=== PATIENT | female | born 1990 | race American Indian/Alaskan Native ===

== ENCOUNTER 2017-02-16 17:35 | Emergency (ER) | payer MEDICAID, OTHER | END 2017-02-16 18:31 | disposition left against medical advice (07) | LOC: DL.ED 17:35 | DX: Z53.21 Procedure and treatment not carried out due to patient leaving prior to being seen by health care provider (principal) ==

== ENCOUNTER 2017-02-27 15:07 | Inpatient (IN) | payer MEDICAID, SELFPAY ==
--- NOTE | 2017-02-27 16:20 | EDM.PDOC ---
ED HPI Skin/Rash - General Chief Complaint: Skin Complaint Stated Complaint: SKIN PROBLEM Time Seen by Provider: 02/27/17 16:10 Source: Reports: Patient History Limitations: Reports: No limitations - History of Present Illness INITIAL COMMENTS - FREE TEXT/NARRATIVE: This 26 yo female patient reports to the ED with swelling and drainage from the top of her head. The patient reports she hit her head on the bottom of the steps 3-4 days ago. The patient started to have pain at that time, but her pain got much worse over the past 24 hours. The patient reports a history of diabetes and previous MRSA infections. The patient reports that she attempted to get into the clinic today, but her provider was not available. 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, NSAIDS - Related Data Allergies Allergy/AdvReac Type Severity Reaction Status Date / Time No Known Allergies Allergy Verified 02/27/17 15:53 Home Meds: Ambulatory Orders Medication Instructions Recorded Confirmed Aspirin [Halfprin] 81 mg PO DAILY 12/06/13 02/27/17 Insulin Detemir [Levemir] 20 unit SUBCUT DAILY 12/06/13 02/27/17 glyBURIDE [Micronase] 5 mg PO BID 12/06/13 02/27/17 Gabapentin 300 mg PO TID 06/30/16 02/27/17 Insulin Aspart [NovoLOG] 10 unit SUBCUT TIDAC pen 12/26/16 02/27/17 Magnesium Oxide 500 mg PO BIDMEALS tablet 12/26/16 02/27/17 Phosphorus #1 [Neutra-Phos] 500 mg PO TID tablet 12/26/16 02/27/17 Lisinopril 1 tab PO DAILY 02/27/17 02/27/17 Past Medical History HEENT History: Reports: None Cardiovascular History: Reports: Hypertension Respiratory History: Reports: None Gastrointestinal History: Reports: None Genitourinary History: Reports: Pyelonephritis 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 Musculoskeletal History: Reports: None Neurological History: Reports: None Psychiatric History: Reports: Addiction Endocrine/Metabolic History: Reports: Diabetes, type II Hematologic History: Reports: None Immunologic History: Reports: None Oncologic (Cancer) History: Reports: None Dermatologic History: Reports: None - Infectious Disease History Infectious Disease History: Reports: C-difficile - Past Surgical History Other Musculoskeletal Surgeries/Procedures:: surgery to repair fractured wrist Social & Family History - Family History Family Medical History: Noncontributory - Tobacco Use Smoking Status *Q: Current Every Day Smoker Years of Tobacco use: 5 Packs/Tins Daily: 3 Used Tobacco, but Quit: No Second Hand Smoke Exposure: Yes - Caffeine Use Caffeine Use: Reports: Coffee, Soda - Recreational Drug Use Recreational Drug Use: No Drug Use in Last 12 Months: Yes Recreational Drug Type: Reports: Amphetamines (Speed), Methamphetamine, Other ( see below) Other Recreational Drug Type: used 5 days ago Recreational Drug Use Frequency: Not Used In Over 5 Months Recreational Drug Last Use: 5 days ago ED ROS GENERAL - Review of Systems Review Of Systems: ROS reveals no pertinent complaints other than HPI. ED EXAM, SKIN/RASH Exam: See Below Exam Limited By: No limitations General Appearance: alert, WD/WN, moderate distress Eye Exam: bilateral eye: EOMI, normal inspection, PERRL Ears: normal external exam, normal canal, hearing grossly normal, normal TMs Nose: normal inspection, normal mucosa, no blood Throat/Mouth: Normal inspection, Normal lips, Normal teeth, Normal gums, Normal oropharynx, Normal voice, No airway compromise Head: atraumatic, other (posterior scalp pain with drainage) Neck: normal inspection, supple, non-tender, full range of motion Respiratory/Chest: no respiratory distress, lungs clear, normal breath sounds, no accessory muscle use, chest non-tender Cardiovascular: normal peripheral pulses, regular rate, rhythm, no edema, no gallop, no JVD, no murmur, no rub GI/Abdominal: normal bowel sounds, soft, non tender, no organomegaly, no distention, no abnormal bruit, no mass (Female) Exam: Deferred Rectal (Female) Exam: Deferred Back Exam: normal inspection, full range of motion, NT Extremities: normal inspection, normal range of motion, non-tender, no pedal edema, normal capillary refill Neurological: alert, oriented, CN II-XII intact, normal cognition, normal gait, normal reflexes, no motor/sensory deficits Psychiatric: normal affect, normal mood Skin: Erythema (posterior scalp with drainage) Location, Skin: head Characteristics: erythematous (with drainage) Associated features: warmth, tenderness, swelling, induration Lymphatic: no adenopathy Course - Vital Signs Last Recorded V/S: Last Vital Signs Temp 37.1 C 02/27/17 15:59 Pulse 123 H 02/27/17 15:59 Resp 20 02/27/17 15:59 BP 117/92 H 02/27/17 15:59 Pulse Ox 100 02/27/17 15:59 - Orders/Labs/Meds Orders: Active Orders 24 hr Category Date Time Status CULTURE BLOOD [BC] Stat Lab 02/27/17 16:15 Received CULTURE BLOOD [BC] Stat Lab 02/27/17 16:20 Received CULTURE WOUND [RM] Stat Lab 02/27/17 16:10 Received UA W/MICROSCOPIC [URIN] Stat Lab 02/27/17 16:50 Ordered Sodium Chloride 0.9% [Normal Saline] 1,000 ml Med 02/27/17 17:02 Ordered IV .BOLUS Vancomycin 1.25 gm Med 02/27/17 17:07 Ordered Sodium Chloride 0.9% [Normal Saline] 250 ml IV ONETIME Medication Orders Sodium Chloride (Normal Saline) 1,000 mls @ 999 mls/hr IV .BOLUS ONE Stop: 02/27/17 18:02 Vancomycin HCl 1.25 gm/ Sodium (Chloride) 250 mls @ 167 mls/hr IV ONETIME ONE Stop: 02/27/17 18:36 Labs: Laboratory Tests 02/27/17 02/27/17 02/27/17 Range/Units 16:15 16:15 16:15 WBC 17.1 H (5.0-10.0) 10^3/uL RBC 4.93 (4.2-5.4) 10^6/uL Hgb 11.8 L (12.0-16.0) g/dL Hct 36.3 L (37.0-47.0) % MCV 73.6 L (80-100) fL MCH 23.9 L (27.0-34.0) pg MCHC 32.5 L (33.0-35.0) g/dL Plt Count 522 H (150-450) 10^3/uL Neut % (Auto) 74.9 (42.2-75.2) % Lymph % (Auto) 16.9 L (20.5-50.1) % [place] % (Auto) 6.9 (2-8) % Eos % (Auto) 1.1 (1.0-3.0) % Baso % (Auto) 0.2 (0.0-1.0) % Sodium 127 L (135-145) mmol/L Potassium 4.0 (3.6-5.0) mmol/L Chloride 93 L (101-111) mmol/L Carbon Dioxide 25.0 (21.0-31.0) mmol/L Anion Gap 13.0 BUN 8 (7-18) mg/dL Creatinine 0.7 (0.6-1.3) mg/dL Est Cr Clr Drug Dosing 76.25 mL/min Estimated GFR (MDRD) > 60 BUN/Creatinine Ratio 11.42 Glucose 467 H* (74-105) mg/dL Lactic Acid 2.1 (0.5-2.2) mmol/L Calcium 8.5 (8.4-10.2) mg/dl Total Bilirubin 0.5 (0.2-1.0) mg/dL AST 28 (10-42) IU/L ALT 48 (10-60) IU/L Alkaline Phosphatase 130 H (42-121) IU/L Total Protein 8.3 H (6.7-8.2) g/dl Albumin 3.4 (3.2-5.5) g/dl Globulin 4.9 Albumin/Globulin Ratio 0.69 Urine Opiates Screen (NEGATIVE) Ur Oxycodone Screen (NEGATIVE) Urine Methadone Screen (NEGATIVE) Ur Barbiturates Screen (NEGATIVE) U Tricyclic Antidepress (NEGATIVE) Ur Phencyclidine Scrn (NEGATIVE) Ur Amphetamine Screen (NEGATIVE) U Methamphetamines Scrn (NEGATIVE) Urine MDMA Screen (NEGATIVE) U Benzodiazepines Scrn (NEGATIVE) Urine Cocaine Screen (NEGATIVE) U Marijuana (THC) Screen (NEGATIVE) 02/27/17 Range/Units 16:50 WBC (5.0-10.0) 10^3/uL RBC (4.2-5.4) 10^6/uL Hgb (12.0-16.0) g/dL Hct (37.0-47.0) % MCV (80-100) fL MCH (27.0-34.0) pg MCHC (33.0-35.0) g/dL Plt Count (150-450) 10^3/uL Neut % (Auto) (42.2-75.2) % Lymph % (Auto) (20.5-50.1) % [place] % (Auto) (2-8) % Eos % (Auto) (1.0-3.0) % Baso % (Auto) (0.0-1.0) % Sodium (135-145) mmol/L Potassium (3.6-5.0) mmol/L Chloride (101-111) mmol/L Carbon Dioxide (21.0-31.0) mmol/L Anion Gap BUN (7-18) mg/dL Creatinine (0.6-1.3) mg/dL Est Cr Clr Drug Dosing mL/min Estimated GFR (MDRD) BUN/Creatinine Ratio Glucose (74-105) mg/dL Lactic Acid (0.5-2.2) mmol/L Calcium (8.4-10.2) mg/dl Total Bilirubin (0.2-1.0) mg/dL AST (10-42) IU/L ALT (10-60) IU/L Alkaline Phosphatase (42-121) IU/L Total Protein (6.7-8.2) g/dl Albumin (3.2-5.5) g/dl Globulin Albumin/Globulin Ratio Urine Opiates Screen Negative (NEGATIVE) Ur Oxycodone Screen Negative (NEGATIVE) Urine Methadone Screen Negative (NEGATIVE) Ur Barbiturates Screen Negative (NEGATIVE) U Tricyclic Antidepress Negative (NEGATIVE) Ur Phencyclidine Scrn Negative (NEGATIVE) Ur Amphetamine Screen Negative (NEGATIVE) U Methamphetamines Scrn Positive H (NEGATIVE) Urine MDMA Screen Negative (NEGATIVE) U Benzodiazepines Scrn Negative (NEGATIVE) Urine Cocaine Screen Negative (NEGATIVE) U Marijuana (THC) Screen Negative (NEGATIVE) Meds: Medications Generic Name Dose Route Start Last Admin Trade Name Freq PRN Reason Stop Dose Admin Sodium Chloride 1,000 mls @ 999 mls/hr 02/27/17 17:02 Normal Saline IV 02/27/17 18:02 .BOLUS ONE Vancomycin HCl 1.25 gm/ Sodium 250 mls @ 167 mls/hr 02/27/17 17:07 Chloride IV 02/27/17 18:36 ONETIME ONE Discontinued Medications Generic Name Dose Route Start Last Admin Trade Name Freq PRN Reason Stop Dose Admin Oxycodone/Acetaminophen 1 tab 02/27/17 17:06 Percocet 325-5 Mg PO 02/27/17 17:07 ONETIME ONE Departure - Departure Time of Disposition: 17:09 Disposition: Admitted As Inpatient 64 Condition: poor Clinical Impression: Abscess, Bacteremia Forms: ED Department Discharge Care Plan Goals: Discussed the examination, lab and history results with Dr. Felix. Dr. Felix accepted the patient for continued evaluation and management. - My Orders Last 24 Hours: My Active Orders 02/27/17 16:10 CULTURE WOUND [RM] Stat 02/27/17 16:15 CULTURE BLOOD [BC] Stat 02/27/17 16:20 CULTURE BLOOD [BC] Stat 02/27/17 16:50 UA W/MICROSCOPIC [URIN] Stat 02/27/17 17:02 Sodium Chloride 0.9% [Normal Saline] 1,000 ml IV .BOLUS 02/27/17 17:07 Vancomycin 1.25 gm Sodium Chloride 0.9% [Normal Saline] 250 ml IV ONETIME - Assessment/Plan Last 24 Hours: My Active Orders 02/27/17 16:10 CULTURE WOUND [RM] Stat 02/27/17 16:15 CULTURE BLOOD [BC] Stat 02/27/17 16:20 CULTURE BLOOD [BC] Stat 02/27/17 16:50 UA W/MICROSCOPIC [URIN] Stat 02/27/17 17:02 Sodium Chloride 0.9% [Normal Saline] 1,000 ml IV .BOLUS 02/27/17 17:07 Vancomycin 1.25 gm Sodium Chloride 0.9% [Normal Saline] 250 ml IV ONETIME
[2017-02-27 16:47] LABS: CHLORIDE,CL 93 mmol/L (101-111); SODIUM,NA 127 mmol/L (135-145)
[2017-02-27] MEDS ORDERED: Sodium Chloride 0.9% 1,000 ML IV ONE (17:02)
[2017-02-27] MEDS ORDERED: Acetaminophen/oxyCODONE 325-5 MG Tab PO ONE (17:06)
[2017-02-27] MEDS ORDERED: Ondansetron 4 MG/2 ML SDV IVPUSH PRN (17:46)
[2017-02-27] MEDS ORDERED: Docusate Sodium 100 MG Cap PO PRN (17:46)
--- NOTE | 2017-02-27 17:55 | PCM.HP ---
H&P History of Present Illness - General Date of Service: 02/27/17 Admit Problem/Dx: Admission Diagnosis/Problem Admission Diagnosis/Problem Cellulitis Source of Information: Patient - History of Present Illness Initial Comments - Free Text/Narative: the patient is a 26-year-old lady with a history of uncontrolled diabetes, hypertension History of MRSA skin infection History of pyelonephritis with obstructive uropathy and sepsis She was planned to be treated as an outpatient and with IV antibiotic but was unable to followup regularly with antibiotic treatment in the infusion Center So finally the patient's PICC line was removed and it was on ciprofloxacin orally She also has a history of drug use the patient presented to the emergency room and to remain off the pain on the top of the head She keep her head into table about 4 or 5 days prior to presentation developed an area of swelling there in the next few days the swelling got worse and was associated with spreading pain she denies fever but had chills She felt enlarged lymph nodes under her maxillary area She had mild drainage from the area Head Pain Score (Numeric/FACES): 7 - Related Data Allergies/Adverse Reactions: Allergies Allergy/AdvReac Type Severity Reaction Status Date / Time No Known Allergies Allergy Verified 02/27/17 15:53 Home Medications: Home Meds Aspirin [Halfprin] 81 mg PO DAILY 12/06/13 [History] Insulin Detemir [Levemir] 20 unit SUBCUT DAILY 12/06/13 [History] glyBURIDE [Micronase] 5 mg PO BID 12/06/13 [History] Gabapentin 300 mg PO TID 06/30/16 [History] Insulin Aspart [NovoLOG] 10 unit SUBCUT TIDAC pen 12/26/16 [Rx] Magnesium Oxide 500 mg PO BIDMEALS tablet 12/26/16 [Rx] Phosphorus #1 [Neutra-Phos] 500 mg PO TID tablet 12/26/16 [Rx] Lisinopril 1 tab PO DAILY 02/27/17 [History] Metoprolol Tartrate [Metoprolol Tartrate] 12.5 mg PO BID 02/27/17 [History] Past Medical History HEENT History: Reports: None Cardiovascular History: Reports: Hypertension Respiratory History: Reports: None Gastrointestinal History: Reports: None Genitourinary History: Reports: Pyelonephritis Other Genitourinary History: dysfunctional bladder, has an indwelling cath [employer] INSTRUMENTS History: Reports: None Musculoskeletal History: Reports: None Neurological History: Reports: Other (see below) (chronic pain with continuous narcotic use) Psychiatric History: Reports: Addiction (drug abuse) Endocrine/Metabolic History: Reports: Diabetes, type I Hematologic History: Reports: None Immunologic History: Reports: None, Other (see below) (history of MRSA infection ) Oncologic (Cancer) History: Reports: None Dermatologic History: Reports: None - Infectious Disease History Infectious Disease History: Reports: C-difficile, MRSA - Past Surgical History Other Musculoskeletal Surgeries/Procedures:: surgery to repair fractured wrist Social & Family History - Family History Family Medical History: Noncontributory - Tobacco Use Smoking Status *Q: Current Every Day Smoker Years of Tobacco use: 5 Packs/Tins Daily: 3 Used Tobacco, but Quit: No Second Hand Smoke Exposure: Yes - Caffeine Use Caffeine Use: Reports: Coffee, Soda - Recreational Drug Use Recreational Drug Use: No Drug Use in Last 12 Months: Yes Recreational Drug Type: Reports: Amphetamines (Speed), Methamphetamine, Other ( see below) Other Recreational Drug Type: used 5 days ago Recreational Drug Use Frequency: Not Used In Over 5 Months Recreational Drug Last Use: 5 days ago H&P Review of Systems - Review of Systems: Review Of Systems: See Below General: Reports: chills. Denies: fever Pulmonary: Denies: Shortness of Breath, Wheezing Cardiovascular: Denies: edema Gastrointestinal: Denies: Abdominal pain Genitourinary: Reports: other (Hill catheter) Psychiatric: Denies: confusion Neurological: Denies: Dizziness Exam - Exam Exam: See Below - Vital Signs Vital Signs: Last Vital Signs Temp 37.1 C 02/27/17 15:59 Pulse 123 H 02/27/17 15:59 Resp 20 02/27/17 15:59 BP 117/92 H 02/27/17 15:59 Pulse Ox 100 02/27/17 15:59 Weight: 40.37 kg - Exam Quality Assessment: other (underweight). No: supplemental oxygen General: alert, oriented HEENT: Other (fluctuant area at the top of the head,there is mild drainage, there is redness, after cleaning the area with Betadine I have aspirated about 5 cc of pus) Neck: supple Lungs: Clear to auscultation Cardiovascular: regular rate, regular rhythm Abdomen: normal bowel sounds, soft Extremities: normal inspection. No: edema Skin: other Neuro Extensive - Mental Status: alert, oriented x3, normal mood/affect, normal cognition Psychiatric: alert, normal affect, normal mood - Patient Data Result Diagrams: 02/27/17 16:15 02/27/17 16:15 *Q Meaningful Use (ADM) - VTE *Q VTE Criteria *Q: - Stroke *Q Stroke Criteria *Q: - AMI *Q AMI Criteria *Q: - Problem List (1) Uncontrolled diabetes mellitus SNOMED Code(s): 283771086 ICD Code: E11.65 - TYPE 2 DIABETES MELLITUS WITH HYPERGLYCEMIA Status: Acute Current Visit: Yes (2) Abscess SNOMED Code(s): 487285618 ICD Code: L02.91 - CUTANEOUS ABSCESS, UNSPECIFIED Status: Acute Current Visit: Yes Problem List Initiated/Reviewed/Updated: Yes Orders Last 24hrs: Active Orders 24 hr Category Date Time Status Patient Status [ADT] Routine ADT 02/27/17 17:46 Ordered Antiembolic Devices [RC] PER UNIT ROUTINE Care 02/27/17 17:47 Ordered Blood Glucose Check, Bedside [RC] QIDACANDBED Care 02/27/17 17:46 Ordered Communication Order [RC] DAILY Care 02/27/17 17:44 Ordered Oxygen Therapy [RC] PRN Care 02/27/17 17:46 Ordered Peripheral IV Care [RC] . DIRECTED Care 02/27/17 17:47 Ordered Up With Assistance [RC] ASDIRECTED Care 02/27/17 17:46 Ordered VTE/DVT Education [RC] PER UNIT ROUTINE Care 02/27/17 17:46 Ordered Vital Signs [RC] Q4H Care 02/27/17 17:46 Ordered Consistent Carbohydrate Diet [DIET] Diet 02/27/17 Breakfast Ordered BASIC METABOLIC PANEL,BMP [CHEM] AM Lab 02/28/17 05:15 Ordered CBC WITH AUTO DIFF [HEME] AM Lab 02/28/17 05:15 Ordered CULTURE WOUND + SMEAR [RM] Routine Lab 02/27/17 17:35 Uncollected GRAM STAIN [RM] Routine Lab 02/27/17 17:35 Ordered IRON [REF] Routine Lab 02/27/17 17:41 Ordered LACTIC ACID [CHEM] Routine Lab 02/27/17 19:00 Ordered Acetaminophen [Tylenol] Med 02/27/17 17:46 Ordered 650 mg PO Q4H PRN Aspirin [Halfprin] Med 02/28/17 09:00 Ordered 81 mg PO DAILY Docusate Sodium [Colace] Med 02/27/17 17:46 Ordered 100 mg PO BID PRN Gabapentin [Neurontin] Med 02/27/17 21:00 Ordered 300 mg PO TID Heparin Sodium Med 02/27/17 22:00 Ordered 5,000 units SUBCUT Q8HR Ibuprofen [Motrin] Med 02/27/17 17:46 Ordered 400 mg PO Q6H PRN Insulin Aspart [NovoLOG] Med 02/28/17 08:00 Ordered 10 unit SUBCUT TIDAC Insulin Aspart [NovoLOG] Med 02/27/17 21:00 Ordered See Protocol SUBCUT QIDACANDBED Insulin Detemir [Levemir] Med 02/27/17 18:30 Ordered 30 unit SUBCUT PCDINNER Lisinopril [Prinivil] Med 02/28/17 09:00 Ordered 10 mg PO DAILY Magnesium Oxide Med 02/27/17 18:00 Ordered 500 mg PO BIDMEALS Ondansetron [Zofran] Med 02/27/17 17:46 Ordered 4 mg IVPUSH Q6H PRN Phosphorus #1 [Neutra-Phos] Med 02/27/17 21:00 Ordered 500 mg PO TID Piperacillin/Tazobactam [Zosyn] 3.375 gm Med 02/27/17 17:45 Ordered Sodium Chloride 0.9% [Normal Saline] 100 ml IV Q6H Sodium Chloride 0.9% [Normal Saline] 1,000 ml Med 02/27/17 18:00 Ordered IV ASDIRECTED Sodium Chloride 0.9% [Saline Flush] Med 02/27/17 17:46 Ordered 10 ml FLUSH ASDIRECTED PRN Vancomycin Pharmacy to Dose [Pharmacy to Dose - Med 02/27/17 17:45 Ordered Vancomycin] 1 dose .XX ASDIRECTED Zolpidem [Ambien] Med 02/27/17 17:46 Ordered 5 mg PO BEDTIME PRN glyBURIDE [Micronase] Med 02/27/17 21:00 Ordered 5 mg PO BID oxyCODONE Med 02/27/17 17:46 Ordered 5 mg PO Q4H PRN Antiembolic Hose [OM.PC] Per Unit Routine Oth 02/27/17 17:47 Ordered Peripheral IV Insertion Adult [OM.PC] Routine Oth 02/27/17 17:46 Ordered Resuscitation Status Routine Resus Stat 02/27/17 17:46 Ordered Medication Orders Acetaminophen (Tylenol) 650 mg PO Q4H PRN PRN Reason: Pain (Mild 1-3)/fever Aspirin (Halfprin) 81 mg PO DAILY [facility] Docusate Sodium (Colace) 100 mg PO BID PRN PRN Reason: Constipation Gabapentin (Neurontin) 300 mg PO TID [facility] Glyburide (Micronase) 5 mg PO BIDMEALS [facility] Heparin Sodium (Porcine) (Heparin Sodium) 5,000 units SUBCUT Q8HR [facility] Sodium Chloride (Normal Saline) 1,000 mls @ 999 mls/hr IV .BOLUS ONE Stop: 02/27/17 18:02 Last Admin: 02/27/17 17:21 Dose: 999 mls/hr Vancomycin HCl 1.25 gm/ Sodium (Chloride) 250 mls @ 167 mls/hr IV ONETIME ONE Stop: 02/27/17 18:36 Last Admin: 02/27/17 17:37 Dose: 167 mls/hr Piperacillin Sod/Tazobactam (Sod 3.375 gm/ Sodium Chloride) 100 mls @ 200 mls/ hr IV Q6H [facility] Sodium Chloride (Normal Saline) 1,000 mls @ 75 mls/hr IV ASDIRECTED [facility] Ibuprofen (Motrin) 400 mg PO Q6H PRN PRN Reason: Pain (mild 1-3) Insulin Aspart (Novolog) 10 unit SUBCUT TIDAC [facility] Insulin Aspart (Novolog) 0 unit SUBCUT QIDACANDBED [facility] PRN Reason: Protocol Insulin Detemir (Levemir) 30 unit SUBCUT PCDINNER [facility] Lisinopril (Prinivil) 10 mg PO DAILY [facility] Magnesium Oxide (Magnesium Oxide) 500 mg PO BIDMEALS [facility] Ondansetron HCl (Zofran) 4 mg IVPUSH Q6H PRN PRN Reason: Nausea/Vomiting Oxycodone HCl (Oxycodone) 5 mg PO Q4H PRN PRN Reason: Pain (moderate 4-6) Sodium Chloride (Saline Flush) 10 ml FLUSH ASDIRECTED PRN PRN Reason: Keep Vein Open Sodium Phosphate (Neutra-Phos) 500 mg PO TID [facility] Vancomycin HCl (Pharmacy To Dose - Vancomycin) 1 dose .XX ASDIRECTED [facility] Zolpidem Tartrate (Ambien) 5 mg PO BEDTIME PRN PRN Reason: Sleep Assessment/Plan Comment:: 1. the patient had trauma to the top of the head likely developed a hematoma which got infected She has a history of MRSA The patient has mildly elevated lactic acid, concern for sepsis but most severe sepsis Repeat lactic acid give IV fluids I aspirated the area and was sent for Gram stain and culture Obtain blood culture Treat empirically with Zosyn and vancomycin 2. the emergency room physician opened up the area and will use twice daily packing to keep the abscess opened 3. Uncontrolled diabetes give the patient's IV fluid treat with linear and NovoLog combination continue glyburide Use supplemental insulin and hypoglycemia protocol as needed 4. hypertension Treat with lisinopril The patient is noted to be on very low-dose metoprolol 12.5 mg twice a day for now I will hold that I would rather push CARLOS inhibitor higher if needed for blood pressure control 5. chronic pain with chronic narcotic use and addiction Plan to minimize narcotics Continue Neurontin 6. urinary retention The patient has a Hill catheter currently Last time was changed on Saturday the followup as outpatient with urology Discussed with the ER nurse practitioner, Rd
[2017-02-27] MEDS ORDERED: Insulin Detemir 100 Units/ML 3 ML Pen SUBCUT SCH ×2 (18:30)
[2017-02-27] MEDS: glyBURIDE 5 MG Tab PO SCH (18:43)
[2017-02-27] MEDS: Piperacillin/Tazobactam 3.375 GM in Sodium Chloride 0.9% 100 ML IV SCH (18:43)
[2017-02-27] MEDS: oxyCODONE 5 MG Tab PO PRN (19:55)
[2017-02-27] MEDS: Sodium Chloride 0.9% 1,000 ML IV SCH (20:52)
[2017-02-27] MEDS: Zolpidem 5 MG Tab PO PRN (20:55)
[2017-02-27] MEDS: Phosphorus #1 250 MG Tab PO SCH (20:55)
[2017-02-27] MEDS: Gabapentin 300 MG Cap PO SCH (20:56)
[2017-02-27] MEDS ORDERED: Insulin Aspart 100 Units/ML 3 ML Pen SUBCUT STA (21:00)
[2017-02-27] MEDS: Ibuprofen 400 MG Tab PO PRN (21:03)
[2017-02-27] MEDS: Insulin Aspart 100 Units/ML 3 ML Pen SUBCUT SCH ×2 (21:04→22:25)
[2017-02-27] MEDS: Heparin Sodium 5,000 Units/ML Vial SUBCUT SCH (22:21)
[2017-02-28] MEDS: Piperacillin/Tazobactam 3.375 GM in Sodium Chloride 0.9% 100 ML IV SCH ×5 (00:20→18:18)
[2017-02-28] MEDS: Heparin Sodium 5,000 Units/ML Vial SUBCUT SCH ×3 (06:22→21:50)
[2017-02-28 06:49] LABS: CHLORIDE,CL 108 mmol/L (101-111); SODIUM,NA 138 mmol/L (135-145)
[2017-02-28] MEDS: Insulin Aspart 100 Units/ML 3 ML Pen SUBCUT SCH ×7 (08:02→21:06)
[2017-02-28] MEDS: Phosphorus #1 250 MG Tab PO SCH ×3 (08:35→21:02)
[2017-02-28] MEDS: glyBURIDE 5 MG Tab PO SCH ×2 (08:35→17:21)
[2017-02-28] MEDS: Gabapentin 300 MG Cap PO SCH ×3 (08:35→21:02)
[2017-02-28] MEDS: Aspirin 81 MG Tab.EC PO SCH (08:36)
[2017-02-28] MEDS: oxyCODONE 5 MG Tab PO PRN ×4 (08:42→21:03)
[2017-02-28] MEDS ORDERED: Lisinopril 10 MG Tab PO SCH ×2 (09:00)
[2017-02-28] MEDS ORDERED: Morphine 2 MG/ML Syringe IVPUSH ONE (11:41)
[2017-02-28] MEDS: Sodium Chloride 0.9% 1,000 ML IV SCH (13:15)
--- NOTE | 2017-02-28 13:26 | CT ---
CLINICAL HISTORY: 26-year-old hospitalized female with focal swelling top of head (patient states "h it head on deck board, 4 days ago"). SCAN TECHNIQUE: Volume acquisition of data from an unenhanced CT scan of the head and brain obtained with the patient lying supine on the Siemens multislice CT scanner [place], [place]. All data archived in the PACS system for storage, reformatting axial/sagittal/coron al planes and study. INTERPRETATION: Abnormal. 1. *Apparent encapsulated, focal extracranial 1.5 cm diameter subcutaneous mass with increased atten uation centrally suggesting blood or foreign body material, high over the midline parietal convexity , posteriorly. ("Ponytail" wrap identified separately, posteriorly). NOTE: Uniformly thick "rind" suggest chronic process or abscess. 2. No inflammatory involvement or fracture of the underlying bony calvarium. 3. Uniformly thick bony calvarium without sign of fracture, underlying brain contusion or epidural/s ubdural hematoma or abscess. 4. Symmetric rahman-white matter pattern and underlying mirror-image normal ventricular system. No sup ratentorial or posterior fossa mass lesion. 5. Cerebellum and brainstem unremarkable.
--- NOTE | 2017-02-28 14:42 | PN ---
DATE: 02/28/2017 HISTORY OF PRESENT ILLNESS: Ms. Adán Gupta is a 26-year-old female with a medical history significant for diabetes mellitus, hyperlipidemia, history of recurrent infections, and recurrent urinary tract infection leading to pyelonephritis, requiring prolonged IV antibiotic courses, and history of MRSA in the past, admitted to the hospital with complaints of increasing scalp pain and was noted to have scalp cellulitis and abscess requiring incision and drainage by the ER doctor. For the past 24 hours, the patient continues to have pain to the scalp. She grades the pain as 4 to 5/10 in intensity, relieved with pain medication, radiating towards the neck where she has lymphadenopathy. Denies any nausea or vomiting. Denies any chest pain. No shortness of breath. No abdominal pain. No diarrhea. REVIEW OF SYSTEMS: Cardiovascular, Respiratory Gastrointestinal, Constitutional were all evaluated. PHYSICAL EXAMINATION: Vital Signs: Temperature of 98.7, pulse of 83, blood pressure of 92/55, saturating at 100%, respiratory rate of 20. General Appearance: The patient is well oriented to time, place, and person. Follows commands spontaneously. Cardiovascular System: S1 and S2 heard with normal intensity. No gallops. Respiratory System: Clear to auscultation bilaterally. No wheeze. No crepitations. Abdomen: Soft. Bowel sounds positive. Nontender. No rigidity. Extremities: No edema in bilateral lower extremities. Neurology: No gross focal neurological deficits. LABORATORY DATA: WBC 10.8, hemoglobin 9.9, hematocrit 30.8, platelet count 416. Sodium 138, potassium 3.2, chloride 108, bicarb 225, BUN 10, creatinine 0.4, glucose 68, and repeat 127. Alkaline phosphatase is 130. Urine toxicology screen positive for methamphetamine. MEDICATIONS: 1. Tylenol 650 mg every 4 hours as needed for pain. 2. Aspirin 81 mg daily. 3. Docusate sodium 100 mg twice a day as needed. 4. Neurontin 300 mg 3 times a day. 5. Glyburide 5 mg twice daily. 6. Heparin 5000 subcu q.8 hourly. 7. Ibuprofen 400 mg every 6 hours as needed for pain. 8. NovoLog supplemental scale. 9. NovoLog 10 units 3 times a day with each meals. 10.Levemir 24 units at bedtime. 11.Lisinopril 10 mg daily. 12.Magnesium oxide 500 mg twice a day. 13.Zofran 4 mg IV every 6 hours as needed for nausea. 14.Oxycodone 5 mg every 4 hours as needed for pain. 15.Zosyn IV q.6 hourly. 16.Vancomycin pharmacy to dose. 17.Ambien 5 mg at bedtime as needed for sleep. ASSESSMENT: 1. Cellulitis and abscess involving the scalp. 2. History of methicillin-resistant staphylococcus aureus in the past. 3. Uncontrolled diabetes. 4. Hypertension. 5. Chronic pain syndrome, requiring chronic opiate pain medications. 6. Chronic urinary retention, requiring chronic indwelling Hill catheter. PLAN: 1. Cellulitis and abscess. The patient underwent incision and drainage and aspiration of the abscess. We will follow with the culture reports. Currently, she is on broad-spectrum antibiotic with Zosyn and vancomycin continue the same. We did a CT scan of the head, which does not show any gas and focal extracranial 1.5 cm diameter subcutaneous mass with increased attenuation noted. We will continue with wound dressings and continue with the broad-spectrum antibiotics and we will closely follow. 2. Type 2 diabetes mellitus, uncontrolled. The patient was noted to have elevated blood sugar. We will increase the Levemir dose. Avoid any hypoglycemic episodes. Have her on hypoglycemic protocol. Have her on supplemental scale insulin as needed for additional coverage of her blood glucose. 3. Hypertension. The patient is currently having low blood pressure. We will hold the lisinopril for now and resume it once she is more stable. 4. Chronic opiate use. The patient complains of increasing pain. We will continue with opiate pain medications for better pain control. 5. Deep vein thrombosis prophylaxis. Continue with heparin 5000 subcu q.8 hourly for DVT prophylaxis. 6. Discussed with Dr. Felix regarding the plan of care. [facility] /[id number]
[2017-02-28] MEDS: Insulin Detemir 100 Units/ML 3 ML Pen SUBCUT SCH (18:26)
[2017-02-28] MEDS: Zolpidem 5 MG Tab PO PRN (21:03)
[2017-03-01] MEDS: Piperacillin/Tazobactam 3.375 GM in Sodium Chloride 0.9% 100 ML IV SCH ×4 (00:15→17:37)
[2017-03-01] MEDS: oxyCODONE 5 MG Tab PO PRN ×6 (01:25→22:19)
[2017-03-01] MEDS: Heparin Sodium 5,000 Units/ML Vial SUBCUT SCH ×3 (05:57→22:16)
[2017-03-01] MEDS: Insulin Aspart 100 Units/ML 3 ML Pen SUBCUT SCH ×7 (08:23→22:17)
[2017-03-01] MEDS: Phosphorus #1 250 MG Tab PO SCH ×3 (08:36→20:35)
[2017-03-01] MEDS: Aspirin 81 MG Tab.EC PO SCH (08:37)
[2017-03-01] MEDS: Gabapentin 300 MG Cap PO SCH ×3 (08:37→20:35)
[2017-03-01] MEDS: glyBURIDE 5 MG Tab PO SCH ×2 (08:37→17:12)
[2017-03-01] MEDS: Ibuprofen 400 MG Tab PO PRN ×2 (08:41→20:36)
[2017-03-01] MEDS: Morphine 2 MG/ML Syringe IVPUSH PRN (11:51)
--- NOTE | 2017-03-01 13:31 | PN ---
DATE: 03/01/2017 HISTORY OF PRESENT ILLNESS: Mrs. Adán Gupta is a 26-year-old female with medical history significant for diabetes mellitus, hyperlipidemia, history of recurrent urinary tract infections leading to pyelonephritis and sepsis in the past requiring prolonged IV antibiotics, history of noncompliance with medical treatment and plan, admitted with scalp cellulitis and abscess after having a traumatic wound. For the last 24 hours, the patient is continued on dressing. She is continued on broad-spectrum antibiotics. She complains of mild pain in the scalp side, only 2 to 3/10 in intensity. Denies any chest pain. No shortness of breath. No abdominal pain. No nausea. No vomiting. No diarrhea. REVIEW OF SYSTEMS: Cardiovascular, respiratory, gastrointestinal, neurology, constitutional were all evaluated. PHYSICAL EXAMINATION: Vital Signs: Temperature of 98.6, pulse of 94, blood pressure 104/69, respiratory rate of 19, saturating at 100%. General Appearance: The patient is well oriented to time, place, and person. Follows commands spontaneously. Cardiovascular System: S1 and S2 heard with normal intensity. No gallops. Respiratory System: Clear to auscultation bilaterally. No wheeze. No crepitations. Abdomen: Soft. Bowel sounds positive. Nontender. No rigidity. Extremities: No edema in bilateral lower extremities. Neurology: No gross focal neurological deficit. Scalp: The patient is noted to have swelling and erythema noted on the scalp near the occipital area. Dressing changes noted. No overt abscess secretion at this time. Minimal secretion at this time. Neck: Lymphadenopathy in the neck noted. MEDICATIONS: 1. Tylenol 650 mg every 4 hours as needed for pain. 2. Aspirin 81 mg daily. 3. Docusate sodium 100 mg twice a day. 4. Neurontin 300 mg three times a day. 5. Glyburide 5 mg twice a day. 6. Heparin 5000 subcutaneous q.8 hourly. 7. Ibuprofen 400 mg every 6 hours as needed. 8. NovoLog 10 units three times a day with each meals. 9. Levemir 24 units subcutaneous at bedtime. 10.Magnesium oxide 500 mg twice a day. 11.Morphine 2 mg IV every 2 hours as needed for pain. 12.Zofran 4 mg IV every 6 hours as needed. 13.Oxycodone 5 mg every 4 hours as needed. 14.Zosyn and vancomycin, pharmacy to dose. 15.Ambien 5 mg at bedtime as needed for sleep. 16.Sodium phosphate 500 mg three times a day. LABORATORY DATA: No new labs ordered for today. We will order for a CBC, BMP, magnesium, and phosphorus in the a.m. MICROBIOLOGY: Wound culture positive for MRSA. ASSESSMENT: 1. Cellulitis and abscess involving the scalp area. 2. Methicillin-resistance Staphylococcus aureus infection. 3. Type 2 diabetes mellitus. 4. Hypertension. 5. Chronic pain syndrome. PLAN: 1. Cellulitis and abscess. The patient continues to have dressing changes. She is noted to have mild secretion from the side. The patient had a CT scan of the head done yesterday, which does not show any gas or worsening of the abscess. We will continue with daily dressing. We will continue with Zosyn and vancomycin. The patient is noted to have MRSA in the wound culture. Continue with vancomycin. If we do not see any other organism, then one might consider discontinuing the Zosyn at that time. 2. Type 2 diabetes mellitus, uncontrolled. The patient noted to have elevated blood sugars initially, this could be resulting from infection source. We will continue with current insulin regimen. Try to avoid any hypoglycemic episodes. Have her on hypoglycemic protocol. 3. Hypertension. The patient was noted to be on lisinopril, but she was noted to have low blood pressure, so we had to hold the lisinopril for now. Her blood pressure seems to be stable for now. 4. DVT prophylaxis. Continue with heparin 5000 subcutaneous q.8 hourly for DVT prophylaxis. 5. Chronic pain syndrome. The patient has been on chronic opiate pain medication. We will continue with morphine for better pain control. [facility] /[id number]
[2017-03-01] MEDS: Sodium Chloride 0.9% 10 ML Syringe FLUSH PRN (14:59)
[2017-03-01 17:15] LABS: CHLORIDE,CL 96 mmol/L (101-111); SODIUM,NA 135 mmol/L (135-145)
[2017-03-01] MEDS: Insulin Detemir 100 Units/ML 3 ML Pen SUBCUT SCH (17:38)
[2017-03-01] MEDS: Acetaminophen 325 MG Tab PO PRN ×2 (18:25→22:20)
[2017-03-01] MEDS: Zolpidem 5 MG Tab PO PRN (22:29)
[2017-03-02] MEDS: Piperacillin/Tazobactam 3.375 GM in Sodium Chloride 0.9% 100 ML IV SCH ×5 (00:34→23:57)
[2017-03-02] MEDS: Acetaminophen 325 MG Tab PO PRN ×2 (02:08→06:29)
[2017-03-02] MEDS: oxyCODONE 5 MG Tab PO PRN ×2 (02:09→06:27)
[2017-03-02] MEDS: Heparin Sodium 5,000 Units/ML Vial SUBCUT SCH ×3 (06:27→21:09)
[2017-03-02] MEDS: Insulin Aspart 100 Units/ML 3 ML Pen SUBCUT SCH ×7 (08:15→21:09)
[2017-03-02] MEDS: glyBURIDE 5 MG Tab PO SCH ×2 (08:16→17:41)
[2017-03-02] MEDS: Phosphorus #1 250 MG Tab PO SCH ×3 (08:16→21:08)
[2017-03-02] MEDS: Aspirin 81 MG Tab.EC PO SCH (08:17)
[2017-03-02] MEDS: Gabapentin 300 MG Cap PO SCH ×3 (08:17→21:08)
[2017-03-02] MEDS ORDERED: Insulin Detemir 100 Units/ML 3 ML Pen SUBCUT SCH (09:47)
[2017-03-02] MEDS: Acetaminophen/oxyCODONE 325-5 MG Tab PO PRN ×4 (10:58→23:56)
--- NOTE | 2017-03-02 11:04 | PN ---
DATE: 03/02/2017 HISTORY OF PRESENT ILLNESS: Mrs. Adán Gupta is a 26-year-old female with medical history significant for diabetes mellitus, hyperlipidemia, history of recurrent urinary tract infection, noncompliance with medication treatment in the past, history of pyelonephritis in the past, admitted with scalp wound resulting in cellulitis and abscess of the scalp, requiring incision and drainage and also wound packs. For the last 24 hours, we did dressing change yesterday. She continues to have mild bogginess of the wound. This morning, she was complaining of feeling nauseated and stomach upset. She denies any chest pain. No shortness of breath. No abdominal pain. No vomiting. No diarrhea. REVIEW OF SYSTEMS: Cardiovascular, respiratory, gastrointestinal, neurology, constitutional were all evaluated. PHYSICAL EXAMINATION: Vital Signs: Temperature of 97.8, pulse of 81, respiratory rate of 16, blood pressure of 105/63, saturating at 99% on room air. General Appearance: The patient is well oriented to time, place, and person. Follows commands spontaneously. Cardiovascular System: S1 and S2 heard with normal intensity. No gallops. Respiratory System: Clear to auscultation bilaterally. No wheeze. No crepitations. Abdomen: Soft. Bowel sounds positive. Nontender. No rigidity. Extremities: No edema in bilateral lower extremities. Neurology: No gross focal neurological deficits. Scalp: The patient continues to have open wound. No active drainage noted at this time. Little bogginess felt. Erythema improved. Swelling improved. MEDICATIONS: Reviewed. Continue with: 1. Aspirin 81 mg daily. 2. Neurontin 300 mg three times a day. 3. Glyburide 5 mg twice a day. 4. Heparin 5000 subcutaneous q.8 hourly. 5. Ibuprofen 400 mg every 6 hours as needed for pain. 6. NovoLog 10 units three times a day. 7. Levemir 28 units at night. 8. Magnesium oxide 500 mg twice a day. 9. Morphine 2 mg IV every 2 hours as needed. 10.Zofran 4 mg IV every 6 hours as needed. 11.Percocet 5/325 mg every 4 hours as needed. 12.Zosyn and vancomycin, pharmacy to dose. 13.Neutra-Phos 500 mg three times a day. 14.Ambien 5 mg at bedtime as needed for sleep. LABORATORY DATA: WBC 6.7, hemoglobin 10, hematocrit 32.4, and platelet count 521. ASSESSMENT: 1. Scalp wound, resulting in cellulitis and abscesses, status post incision and drainage. 2. Methicillin-resistant Staphylococcus aureus infection. 3. Type 2 diabetes mellitus. 4. Hypertension. 5. Chronic pain syndrome. PLAN: 1. Cellulitis and abscess. The patient was admitted with cellulitis and abscess involving the scalp. She was also noted to have lymphadenopathy. The patient had a CT scan of the head done on this admission, which did not show any gas-forming agents or any overt complications. The patient is status post incision and drainage. Continue with wound packs daily. Continue with current IV antibiotic regimen. She is noted to be having methicillin-resistant Staphylococcus aureus. Continue with vancomycin. Her lymphadenopathy is also improved. 2. Type 2 diabetes mellitus, the patient is currently on insulin regimen, slightly uncontrolled. We will increase the Levemir to 28 units subcutaneous at bedtime and continue with supplemental scale insulin as needed for additional coverage of her blood glucose. 3. Hypertension. The patient was hypotensive initially, so we had to hold her off the lisinopril. Continue to hold the lisinopril for now and resume it once she is more medically stable. 4. Chronic pain syndrome. The patient is currently on Percocet, continue the same. Continue with IV pain medications as needed during dressing changes for better pain control. 5. DVT prophylaxis. Continue with heparin 5000 subcutaneous q.8 hourly for DVT prophylaxis. [facility] /[id number]
[2017-03-02] MEDS: Morphine 2 MG/ML Syringe IVPUSH PRN (13:18)
[2017-03-02] MEDS: Zolpidem 5 MG Tab PO PRN (21:09)
[2017-03-03] MEDS: Sodium Chloride 0.9% 10 ML Syringe FLUSH PRN (01:34)
[2017-03-03] MEDS: Acetaminophen/oxyCODONE 325-5 MG Tab PO PRN ×5 (05:27→23:02)
[2017-03-03] MEDS: Heparin Sodium 5,000 Units/ML Vial SUBCUT SCH ×3 (05:27→21:00)
[2017-03-03] MEDS: Piperacillin/Tazobactam 3.375 GM in Sodium Chloride 0.9% 100 ML IV SCH (05:27)
[2017-03-03] MEDS: Insulin Aspart 100 Units/ML 3 ML Pen SUBCUT SCH ×7 (08:53→21:01)
[2017-03-03] MEDS: glyBURIDE 5 MG Tab PO SCH ×2 (08:55→17:38)
[2017-03-03] MEDS: Phosphorus #1 250 MG Tab PO SCH ×3 (10:09→21:00)
[2017-03-03] MEDS: Gabapentin 300 MG Cap PO SCH ×3 (10:10→21:01)
[2017-03-03] MEDS: Aspirin 81 MG Tab.EC PO SCH (10:10)
[2017-03-03] MEDS ORDERED: Insulin Detemir 100 Units/ML 3 ML Pen SUBCUT SCH (10:57)
--- NOTE | 2017-03-03 12:59 | PN ---
DATE: 03/03/2017 HISTORY OF PRESENTING ILLNESS: Mrs. Adán Gupta is a 26-year-old female with medical history significant for hypertension, hyperlipidemia, type 2 diabetes mellitus, urinary retention in the past requiring Hill catheter placement, recurrent urinary tract infection, and noncompliance with medical treatment in the past. Admitted with cellulitis and abscess involving the scalp area requiring incision, drainage, and also wound pack. For the last 24 hours, the patient was continued on wound dressing. Her wound looks better with less erythema. The patient continues to have mild pain at the scalp site at 3 to 4/10 in intensity, aggravated on movement, relieved with pain medication, nonradiating in nature. Not associated with any nausea or vomiting. Denies any chest pains. No shortness of breath. No abdominal pain. No nausea. No vomiting. No diarrhea in the last few days. REVIEW OF SYSTEMS: Cardiovascular, respiratory, gastrointestinal, neurology, and constitutional were all evaluated. PHYSICAL EXAMINATION: Vital Signs: Temperature 98, pulse of 67, blood pressure of 93/55, respiratory rate of 18, and saturating at 99% on room air. General Appearance: The patient is well oriented to time, place, and person. Follows commands spontaneously. Cardiovascular System: S1 and S2 heard with normal intensity. No gallops. Respiratory system: Clear to auscultation bilaterally. No wheeze. No crepitations. Abdomen: Soft. Bowel sounds positive. Nontender. No rigidity. Extremities: No edema on bilateral lower extremities. Neurology: No gross focal neurological deficits. Skin: No acute rash noted. Scalp: The patient continues to have wound noted on the scalp area near the occipital area. No active secretions or drainage noted. Erythema and tenderness improved. MEDICATIONS: Reviewed. Continue with: 1. Aspirin 81 mg daily. 2. Neurontin 300 mg three times a day. 3. Glyburide 5 mg twice a day. 4. Heparin 5000 subcu q.8 hourly. 5. Ibuprofen 400 mg every 6 hours as needed for pain. 6. NovoLog supplemental scale. 7. NovoLog 10 units three times a day with each meals. 8. Levemir 28 units at nighttime. 9. Magnesium oxide 500 mg twice a day. 10.Morphine 2 mg IV q.2 hourly. 11.Percocet 5/325 mg every 4 hours as needed for pain. 12.Sodium phosphate 500 mg three times a day. 13.Vancomycin, pharmacy to dose. 14.Ambien 5 mg at bedtime as needed for sleep. LABORATORY DATA: No new labs ordered for today. Blood glucose of 155. Microbiology, positive for MRSA in the wound culture. Blood culture shows no growth. ASSESSMENT: 1. Cellulitis and abscess involving the scalp area around the occipital region. 2. methicillin-resistant Staphylococcus aureus infection. 3. Type 2 diabetes mellitus, uncontrolled. 4. Hypertension. 5. Chronic pain syndrome. PLAN: 1. Cellulitis and abscess. The patient is currently on vancomycin. She was started on Zosyn and vancomycin initially. Her wound cultures are positive for MRSA. We will discontinue the Zosyn. We will continue the vancomycin. We will consider switching her to oral Zyvox at the time of discharge if she improves. Continue with daily wound dressing changes. Continue with wound pack. We will closely follow. The patient may need surgical followup as an outpatient if she is discharged. 2. Type 2 diabetes mellitus, uncontrolled. The patient tends to have hypo and hyperglycemia. We recently increased her insulin dose. Continue with current dose of Levemir and NovoLog. We will also have her on supplemental scale insulin as needed for additional coverage of her blood glucose. 3. Hypertension. The patient tends to have low blood pressure. She was on lisinopril secondary to her diabetes, but we had to hold the lisinopril secondary to low blood pressures. One might consider starting her back on a low-dose lisinopril if she tolerates at the later date. 4. Chronic pain syndrome. The patient continues to have the pain. She has been on chronic opiate pain medications in the past. We will have her on Percocet 5/325 mg as needed for pain. 5. DVT prophylaxis. Continue heparin 5000 subcu q.8 hourly for DVT prophylaxis. [facility] /[id number]
[2017-03-03] MEDS: Morphine 2 MG/ML Syringe IVPUSH PRN (13:48)
[2017-03-03] MEDS: Zolpidem 5 MG Tab PO PRN (21:01)
[2017-03-04] MEDS: Sodium Chloride 0.9% 10 ML Syringe FLUSH PRN ×5 (01:48→17:16)
[2017-03-04] MEDS: Acetaminophen/oxyCODONE 325-5 MG Tab PO PRN ×5 (03:21→20:32)
[2017-03-04] MEDS: Heparin Sodium 5,000 Units/ML Vial SUBCUT SCH ×3 (05:51→22:13)
[2017-03-04 07:01] LABS: CHLORIDE,CL 103 mmol/L (101-111); SODIUM,NA 135 mmol/L (135-145)
[2017-03-04] MEDS: Insulin Aspart 100 Units/ML 3 ML Pen SUBCUT SCH ×7 (08:24→22:12)
[2017-03-04] MEDS: Gabapentin 300 MG Cap PO SCH ×3 (08:26→20:33)
[2017-03-04] MEDS: glyBURIDE 5 MG Tab PO SCH ×2 (08:26→17:12)
[2017-03-04] MEDS: Aspirin 81 MG Tab.EC PO SCH (08:26)
[2017-03-04] MEDS: Phosphorus #1 250 MG Tab PO SCH ×3 (08:27→20:33)
[2017-03-04] MEDS ORDERED: Insulin Detemir 100 Units/ML 3 ML Pen SUBCUT SCH (10:24)
[2017-03-04] MEDS: Morphine 2 MG/ML Syringe IVPUSH PRN (11:17)
--- NOTE | 2017-03-04 13:18 | PN ---
DATE: 03/04/2017 HISTORY OF PRESENT ILLNESS: Ms. Adán Reddy is a 26-year-old female with a medical history significant for type 2 diabetes mellitus, hyperlipidemia, history of urinary retention, requiring chronic Hill catheter placement, recurrent urinary tract infection in the past noncompliance with medical treatment in the past, admitted with cellulitis and abscess involving the scalp area, noted to have MRSA positive, requiring incision and drainage of the wound. For the last 24 hours, the patient complained of mild pain at the scalp area which is 2 to 3/10 in intensity, improved with pain medication, nonradiating type of pain, not associated with nausea or vomiting. Denies any chest pain. No shortness of breath. No abdominal pain. No nausea, vomiting, or diarrhea. REVIEW OF SYSTEMS: Cardiovascular, respiratory, gastrointestinal, neurology, constitutional were all evaluated. PHYSICAL EXAMINATION: Vital Signs: Temperature of 97.8, respirations of 20, blood pressure 106/67, saturating at 99% on room air. General Appearance: The patient is well oriented to time, place, and person. Follows commands spontaneously. Cardiovascular System: S1 and S2 heard with normal intensity. No gallops. Respiratory: Clear to auscultation bilaterally. No wheeze. No crepitations. Abdomen: Soft. Bowel sounds positive. Nontender. No rigidity. Extremities: No edema in bilateral lower extremities. Scalp wound appears much better. Erythema has gone down. Swelling has gone down. Mild tenderness. MEDICATIONS: Reviewed. Continue with; 1. Aspirin 81 mg daily. 2. Neurontin 300 mg three times a day. 3. Glyburide 5 mg twice a day. 4. Heparin 5000 subcu q.8 hourly. 5. Ibuprofen 400 mg every 6 hours as needed. 6. NovoLog supplemental scale. 7. NovoLog 12 units three times a day with each meals. 8. Levemir increased to 38 units at bedtime. 9. Magnesium oxide 500 mg twice a day. 10.Morphine 2 mg IV q.2 hours as needed for pain during dressing changes. 11.Percocet 5/325 mg every 4 hours as needed for pain. 12.Vancomycin pharmacy to dose. 13.Ambien 5 mg at bedtime as needed for sleep. LABORATORY DATA: Reviewed. WBC 11.4, hemoglobin 10.2, hematocrit 32.7, platelet count 559. Sodium 135, potassium 4, chloride 103, bicarb 26, BUN 12, creatinine 0.5, glucose 176. Microbiology reviewed, wound culture showing MRSA. ASSESSMENT: 1. Cellulitis and abscess secondary to methicillin-resistant staphylococcus aureus of the scalp area. 2. Type 2 diabetes mellitus, uncontrolled. 3. Hypertension. 4. Chronic pain syndrome. PLAN: 1. Cellulitis and abscess. The patient is status post incision and drainage, and daily wound packing is helping the wound to heal well. Her erythema is much improved and tenderness has much improved. We will continue the IV vancomycin. We discontinued the Zosyn. Her cultures are growing methicillin-resistant staphylococcus aureus. The patient might benefit from switching her to Zyvox at the time of discharge. We will continue with daily wound dressings and daily wound packings. The patient has long history of noncompliance with medical treatment plan. 2. Type 2 diabetes mellitus, uncontrolled. We will increase the Levemir and NovoLog doses. We will continue to monitor closely with fingersticks with each meals, have her on supplemental scale insulin as needed for additional coverage of her blood glucose. 3. Hypertension. The patient was noted to be on lisinopril. We have to hold the lisinopril secondary to low blood pressure. We will resume it once she is more stable, one can resume it at a lower dose at 2.5 mg daily. 4. Chronic pain syndrome. The patient continues to receive Percocet. We will use morphine IV as needed doing dressing changes. 5. Deep vein thrombosis prophylaxis. Continue heparin 5000 subcu q.8 hourly for deep vein thrombosis prophylaxis. 6. Possible discharge in a.m. She would have completed one week of IV antibiotics. We will try to refer her to outpatient ID Clinic for further followup. 7. Chronic indwelling Hill catheter. The patient has urinary retention, and she has a followup appointment with Urology Clinic on Saturday, so she needs to be discharged from the hospital by Saturday. [facility] /[id number]
[2017-03-04] MEDS: Zolpidem 5 MG Tab PO PRN (22:13)
[2017-03-05] MEDS: Acetaminophen/oxyCODONE 325-5 MG Tab PO PRN ×3 (00:21→10:47)
[2017-03-05] MEDS: Heparin Sodium 5,000 Units/ML Vial SUBCUT SCH ×2 (05:59→14:26)
[2017-03-05] MEDS: Insulin Aspart 100 Units/ML 3 ML Pen SUBCUT SCH ×4 (08:01→12:06)
[2017-03-05] MEDS: glyBURIDE 5 MG Tab PO SCH (08:05)
[2017-03-05] MEDS: Phosphorus #1 250 MG Tab PO SCH ×2 (08:10→14:35)
[2017-03-05] MEDS: Aspirin 81 MG Tab.EC PO SCH (08:10)
[2017-03-05] MEDS: Gabapentin 300 MG Cap PO SCH ×2 (08:10→14:26)
[2017-03-05] MEDS: Morphine 2 MG/ML Syringe IVPUSH PRN (09:26)
[2017-03-05] MEDS: Sodium Chloride 0.9% 10 ML Syringe FLUSH PRN ×2 (09:26→10:44)
[2017-03-05 11:25] VITALS: BP 107/75
--- NOTE | 2017-03-06 05:42 | DISCH ---
ADMITTING DIAGNOSES: 1. Cellulitis and abscess involving the scalp. 2. Type 2 diabetes mellitus, uncontrolled. 3. Hypertension. 4. Chronic opioid medication use with continued use. DISCHARGE DIAGNOSES: 1. Cellulitis and abscess involving the scalp region, status post incision and drainage and requiring daily wound cares along with wound packing. 2. Type 2 diabetes mellitus. 3. Hypertension. 4. Chronic opioid use. 5. History of noncompliance with medical treatment plan. HISTORY OF PRESENT ILLNESS: Ms. Adán Reddy is a 26-year-old female with medical history significant for type 2 diabetes mellitus; hyperlipidemia; history of urinary retention, requiring chronic indwelling Hill catheter placement; history of recurrent urinary tract infection resulting in sepsis, requiring long-term IV antibiotics, was admitted to the hospital with complaints of pain to the scalp. The patient had a CT scan of the head done, which did not show any evidence of air or any osteomyelitis. The patient underwent incision and drainage on this admission and continued with daily wound cares along with wound packing. The patient was initially started on Zosyn and vancomycin. Her wound culture were growing MRSA along with group B Streptococcus agalactiae. We tapered down the antibiotic to vancomycin. She has completed 1 week of IV antibiotics. She remained hemodynamically stable. Her blood cultures remain negative on this admission. She required insulin dose adjustment secondary to uncontrolled diabetes. The patient's family members were educated on wound dressing changes and wound packing, which they are comfortable with. The patient is discharged home in stable condition. She is advised to follow with [facility] Disease [facility] tomorrow for further cares, and also to follow up with her primary care physician in next 1 week of time. She is discharged home in stable condition. She was explained about the importance of compliance with medical treatment, which she understands and verbalized the same. DISCHARGE MEDICATIONS: Include: 1. Percocet 5/325 mg every 4 hours as needed for pain, dispensed #14 tablets. 2. Aspirin 81 mg daily. 3. Neurontin 300 mg three times a day. 4. NovoLog 10 units three times a day. 5. Levemir 20 units daily. 6. Zyvox 600 mg every 12 hours, dispensed #14. 7. Magnesium oxide 500 mg twice daily. 8. Neutra-Phos 500 mg three times a day. 9. Glyburide 5 mg twice a day. 10.The patient is advised to hold taking the lisinopril secondary to low blood pressure. CONDITION ON ADMISSION: Poor. CONDITION ON DISCHARGE: Stable. ACTIVITY: As tolerated. DIET: Consistent carbohydrate diet. DISCHARGE INSTRUCTIONS: 1. Follow up with Dr. Sanders in ID Clinic tomorrow. 2. Follow with Dr. Palomino, primary care physician, in next 1 week of time. Spent over 35 minutes of time in evaluating and treating this patient and discharge process. [facility] /[id number]
== END 2017-03-05 13:20 | disposition home or self-care (01) | DRG 638 ==
LOC: DL.ED 15:07 → UNDOADMIN 17:19 → DL.MS 17:19 → EEVIPCON 17:46 → DL.MS 17:46
PROVIDERS: ADMIT Internal Medicine; ATTEND Internal Medicine
DX: E11.628 Type 2 diabetes mellitus with other skin complications (principal); R78.81 Bacteremia; L03.811 Cellulitis of head [any part, except face]; L02.811 Cutaneous abscess of head [any part, except face]; B95.62 Methicillin resistant Staphylococcus aureus infection as the cause of diseases classified elsewhere; I10 Essential (primary) hypertension; Z79.891 Long term (current) use of opiate analgesic; E78.5 Hyperlipidemia, unspecified; Z96.0 Presence of urogenital implants; R33.9 Retention of urine, unspecified; Z87.440 Personal history of urinary (tract) infections; Z79.4 Long term (current) use of insulin; Z91.14 Patient's other noncompliance with medication regimen; E11.65 Type 2 diabetes mellitus with hyperglycemia; F17.210 Nicotine dependence, cigarettes, uncomplicated; G89.4 Chronic pain syndrome
CPT/HCPCS: 36415; 80053; 80305; 81001; 83540; 83605; 85025; 87040 ×2; 87070; 87077 ×2; 87186 ×2; 96365; 99284; A9270; J3370; J7030; J7050; 70450; 80048; 80202; 82962; 85027; 87205; J1644; J1815-GY; J2270; J2405; J2543

== ENCOUNTER 2017-05-25 15:14 | Emergency (ER) | payer MEDICAID, OTHER ==
[2017-05-25] MEDS ORDERED: Sodium Chloride 0.9% 10 ML Syringe FLUSH PRN (16:31)
[2017-05-25] MEDS ORDERED: Sodium Chloride 0.9% 1,000 ML IV ONE (16:32)
[2017-05-25] MEDS ORDERED: Ibuprofen 800 MG Tab PO ONE (16:32)
--- NOTE | 2017-05-25 16:36 | EDM.PDOC ---
ED HPI GENERAL MEDICAL PROBLEM - General Chief Complaint: General Stated Complaint: LEG PAIN POSIBLE INFECTION [id number] Time Seen by Provider: 05/25/17 16:33 Source of Information: Reports: Patient History Limitations: Reports: No Limitations - History of Present Illness INITIAL COMMENTS - FREE TEXT/NARRATIVE: 27 yo female presents with c/o pain to bilateral legs. States that she has had pain since yesterday. Denies pain elsewhere. states wounds on legs are slow healing due to Type 1 DM. Pt drowsy during exam. States that she last took her insulin last night and it is once daily prescription. no other complaints Onset Date: 05/24/17 Duration: Getting Worse Location: Reports: Lower Extremity, Left, Lower Extremity, Right Quality: Reports: Ache, Pressure Severity: Moderate Improves with: Reports: None Worsens with: Reports: Movement Context: Reports: Activity Associated Symptoms: Reports: No Other Symptoms - Related Data Allergies Allergy/AdvReac Type Severity Reaction Status Date / Time No Known Allergies Allergy Verified 05/25/17 15:45 Home Meds: Home Meds Aspirin [Halfprin] 81 mg PO DAILY 12/06/13 [History] Insulin Detemir [Levemir] 20 unit SUBCUT DAILY 12/06/13 [History] Gabapentin 300 mg PO TID 06/30/16 [History] Insulin Aspart [NovoLOG] 10 unit SUBCUT TIDAC pen 12/26/16 [Rx] Magnesium Oxide 500 mg PO BIDMEALS tablet 12/26/16 [Rx] Phosphorus #1 [Neutra-Phos] 500 mg PO TID tablet 12/26/16 [Rx] Past Medical History HEENT History: Reports: None Cardiovascular History: Reports: Hypertension Respiratory History: Reports: None Gastrointestinal History: Reports: None Genitourinary History: Reports: Pyelonephritis Other Genitourinary History: dysfunctional bladder, has an indwelling cath [employer] History: Reports: None Musculoskeletal History: Reports: None Neurological History: Reports: Other (See Below) Psychiatric History: Reports: Addiction Endocrine/Metabolic History: Reports: Diabetes, Type I Hematologic History: Reports: None Immunologic History: Reports: None, Other (See Below) Oncologic (Cancer) History: Reports: None Dermatologic History: Reports: None - Infectious Disease History Infectious Disease History: Reports: C-Difficile, MRSA - Past Surgical History Head Surgeries/Procedures: Reports: None Other Musculoskeletal Surgeries/Procedures:: surgery to repair fractured wrist Social & Family History - Family History Family Medical History: Noncontributory - Tobacco Use Smoking Status *Q: Light Tobacco Smoker Years of Tobacco use: 10 Packs/Tins Daily: 0.3 Used Tobacco, but Quit: No Second Hand Smoke Exposure: Yes - Caffeine Use Caffeine Use: Reports: Coffee, Soda - Recreational Drug Use Recreational Drug Use: No Drug Use in Last 12 Months: Yes Recreational Drug Type: Reports: Amphetamines (Speed), Methamphetamine, Other ( see below) Other Recreational Drug Type: used 5 days ago Recreational Drug Use Frequency: Not Used In Over 5 Months Recreational Drug Last Use: 5 days ago ED ROS GENERAL - Review of Systems Review Of Systems: ROS reveals no pertinent complaints other than HPI. ED EXAM, GENERAL - Physical Exam Exam: See Below Exam Limited By: No Limitations General Appearance: Alert, WD/WN, No Apparent Distress Eye Exam: Bilateral Eye: PERRL Head: Atraumatic, Normocephalic Neck: Normal Inspection, Supple, Non-Tender, Full Range of Motion Respiratory/Chest: No Respiratory Distress, Lungs Clear, Normal Breath Sounds, No Accessory Muscle Use, Chest Non-Tender Cardiovascular: Normal Peripheral Pulses, Regular Rate, Rhythm, No Edema, No Gallop, No JVD, No Murmur, No Rub Peripheral Pulses: 4+: Posterior Tibial (L), Posterior Tibial (R), Dorsalis Pedis (L), Dorsalis Pedis (R) Extremities: Normal Inspection (no swelling noted), Normal Range of Motion, Non- Tender, Normal Capillary Refill, No Pedal Edema Neurological: Alert, Oriented, CN II-XII Intact, Normal Cognition, Normal Gait, No Motor/Sensory Deficits Skin Exam: Warm, Dry, Intact, Normal Color, No Rash, Wound/Incision (right weller , no bleeding noted) Course - Vital Signs Last Recorded V/S: Last Vital Signs Temp 98.7 F 05/25/17 18:32 Pulse 84 05/25/17 18:32 Resp 18 05/25/17 18:32 BP 127/91 H 05/25/17 18:32 Pulse Ox 100 05/25/17 18:32 - Orders/Labs/Meds Orders: Active Orders 24 hr Category Date Time Status Blood Glucose Check, Bedside [RC] ONETIME Care 05/25/17 15:56 Active Sodium Chloride 0.9% [Saline Flush] Med 05/25/17 16:31 Active 10 ml FLUSH ASDIRECTED PRN Saline Lock Insert [OM.PC] Stat Oth 05/25/17 16:31 Ordered Medication Orders Sodium Chloride (Saline Flush) 10 ml FLUSH ASDIRECTED PRN PRN Reason: Keep Vein Open Last Admin: 05/25/17 16:52 Dose: 10 ml Labs: Laboratory Tests 05/25/17 05/25/17 05/25/17 Range/Units 15:48 16:40 16:40 WBC 9.4 (5.0-10.0) 10^3/uL RBC 5.03 (4.2-5.4) 10^6/uL Hgb 12.0 (12.0-16.0) g/dL Hct 36.8 L (37.0-47.0) % MCV 73.2 L (80-100) fL MCH 23.9 L (27.0-34.0) pg MCHC 32.6 L (33.0-35.0) g/dL Plt Count 441 (150-450) 10^3/uL Neut % (Auto) 64.4 (42.2-75.2) % Lymph % (Auto) 24.7 (20.5-50.1) % Weakley % (Auto) 7.7 (2-8) % Eos % (Auto) 2.8 (1.0-3.0) % Baso % (Auto) 0.4 (0.0-1.0) % Sodium 134 L (135-145) mmol/L Potassium 3.6 (3.6-5.0) mmol/L Chloride 98 L (101-111) mmol/L Carbon Dioxide 24.0 (21.0-31.0) mmol/L Anion Gap 15.6 BUN 15 (7-18) mg/dL Creatinine 0.7 (0.6-1.3) mg/dL Est Cr Clr Drug Dosing 82.37 mL/min Estimated GFR (MDRD) > 60 Glucose 435 H* (74-105) mg/dL POC Glucose 413 H* (70-105) mg/dl Calcium 8.9 (8.4-10.2) mg/dl Urine Color (YELLOW) Urine Appearance (CLEAR) Urine pH (5.0-9.0) Ur Specific Frederic (1.005-1.030) Urine Protein (NEGATIVE) Urine Glucose (UA) (NEGATIVE) Urine Ketones (NEGATIVE) Urine Occult Blood (NEGATIVE) Urine Nitrite (NEGATIVE) Urine Bilirubin (NEGATIVE) Urine Urobilinogen (0.2-1.0) mg/dL Ur Leukocyte Esterase (NEGATIVE) Urine RBC /HPF Urine WBC (0-5/HPF) /HPF Ur Epithelial Cells /HPF Amorphous Sediment (0/HPF) /HPF Urine Bacteria (0-FEW/HPF) /HPF Urine Yeast (0/HPF) /HPF Urinalysis Comment Urine Opiates Screen (NEGATIVE) Ur Oxycodone Screen (NEGATIVE) Urine Methadone Screen (NEGATIVE) Ur Barbiturates Screen (NEGATIVE) U Tricyclic Antidepress (NEGATIVE) Ur Phencyclidine Scrn (NEGATIVE) Ur Amphetamine Screen (NEGATIVE) U Methamphetamines Scrn (NEGATIVE) Urine MDMA Screen (NEGATIVE) U Benzodiazepines Scrn (NEGATIVE) Urine Cocaine Screen (NEGATIVE) U Marijuana (THC) Screen (NEGATIVE) 05/25/17 05/25/17 05/25/17 Range/Units 16:43 16:43 17:30 WBC (5.0-10.0) 10^3/uL RBC (4.2-5.4) 10^6/uL Hgb (12.0-16.0) g/dL Hct (37.0-47.0) % MCV (80-100) fL MCH (27.0-34.0) pg MCHC (33.0-35.0) g/dL Plt Count (150-450) 10^3/uL Neut % (Auto) (42.2-75.2) % Lymph % (Auto) (20.5-50.1) % Weakley % (Auto) (2-8) % Eos % (Auto) (1.0-3.0) % Baso % (Auto) (0.0-1.0) % Sodium (135-145) mmol/L Potassium (3.6-5.0) mmol/L Chloride (101-111) mmol/L Carbon Dioxide (21.0-31.0) mmol/L Anion Gap BUN (7-18) mg/dL Creatinine (0.6-1.3) mg/dL Est Cr Clr Drug Dosing mL/min Estimated GFR (MDRD) Glucose (74-105) mg/dL POC Glucose 329 H (70-105) mg/dl Calcium (8.4-10.2) mg/dl Urine Color Yellow (YELLOW) Urine Appearance Cloudy (CLEAR) Urine pH 5.5 (5.0-9.0) Ur Specific Frederic 1.015 (1.005-1.030) Urine Protein 30 H (NEGATIVE) Urine Glucose (UA) 500 H (NEGATIVE) Urine Ketones Negative (NEGATIVE) Urine Occult Blood Moderate H (NEGATIVE) Urine Nitrite Positive H (NEGATIVE) Urine Bilirubin Negative (NEGATIVE) Urine Urobilinogen 0.2 (0.2-1.0) mg/dL Ur Leukocyte Esterase Trace H (NEGATIVE) Urine RBC 10-20 H /HPF Urine WBC >100 H (0-5/HPF) /HPF Ur Epithelial Cells Moderate H /HPF Amorphous Sediment Moderate H (0/HPF) /HPF Urine Bacteria Many H (0-FEW/HPF) /HPF Urine Yeast Moderate H (0/HPF) /HPF Urinalysis Comment Urine Opiates Screen Negative (NEGATIVE) Ur Oxycodone Screen Positive H (NEGATIVE) Urine Methadone Screen Negative (NEGATIVE) Ur Barbiturates Screen Negative (NEGATIVE) U Tricyclic Antidepress Negative (NEGATIVE) Ur Phencyclidine Scrn Negative (NEGATIVE) Ur Amphetamine Screen Negative (NEGATIVE) U Methamphetamines Scrn Positive H (NEGATIVE) Urine MDMA Screen Negative (NEGATIVE) U Benzodiazepines Scrn Negative (NEGATIVE) Urine Cocaine Screen Negative (NEGATIVE) U Marijuana (THC) Screen Negative (NEGATIVE) 05/25/17 Range/Units 18:34 WBC (5.0-10.0) 10^3/uL RBC (4.2-5.4) 10^6/uL Hgb (12.0-16.0) g/dL Hct (37.0-47.0) % MCV (80-100) fL MCH (27.0-34.0) pg MCHC (33.0-35.0) g/dL Plt Count (150-450) 10^3/uL Neut % (Auto) (42.2-75.2) % Lymph % (Auto) (20.5-50.1) % Weakley % (Auto) (2-8) % Eos % (Auto) (1.0-3.0) % Baso % (Auto) (0.0-1.0) % Sodium (135-145) mmol/L Potassium (3.6-5.0) mmol/L Chloride (101-111) mmol/L Carbon Dioxide (21.0-31.0) mmol/L Anion Gap BUN (7-18) mg/dL Creatinine (0.6-1.3) mg/dL Est Cr Clr Drug Dosing mL/min Estimated GFR (MDRD) Glucose (74-105) mg/dL POC Glucose 271 H (70-105) mg/dl Calcium (8.4-10.2) mg/dl Urine Color (YELLOW) Urine Appearance (CLEAR) Urine pH (5.0-9.0) Ur Specific Frederic (1.005-1.030) Urine Protein (NEGATIVE) Urine Glucose (UA) (NEGATIVE) Urine Ketones (NEGATIVE) Urine Occult Blood (NEGATIVE) Urine Nitrite (NEGATIVE) Urine Bilirubin (NEGATIVE) Urine Urobilinogen (0.2-1.0) mg/dL Ur Leukocyte Esterase (NEGATIVE) Urine RBC /HPF Urine WBC (0-5/HPF) /HPF Ur Epithelial Cells /HPF Amorphous Sediment (0/HPF) /HPF Urine Bacteria (0-FEW/HPF) /HPF Urine Yeast (0/HPF) /HPF Urinalysis Comment Urine Opiates Screen (NEGATIVE) Ur Oxycodone Screen (NEGATIVE) Urine Methadone Screen (NEGATIVE) Ur Barbiturates Screen (NEGATIVE) U Tricyclic Antidepress (NEGATIVE) Ur Phencyclidine Scrn (NEGATIVE) Ur Amphetamine Screen (NEGATIVE) U Methamphetamines Scrn (NEGATIVE) Urine MDMA Screen (NEGATIVE) U Benzodiazepines Scrn (NEGATIVE) Urine Cocaine Screen (NEGATIVE) U Marijuana (THC) Screen (NEGATIVE) Meds: Medications Generic Name Dose Route Start Last Admin Trade Name Freq PRN Reason Stop Dose Admin Sodium Chloride 10 ml 05/25/17 16:31 05/25/17 16:52 Saline Flush FLUSH 10 ml ASDIRECTED PRN Administration Keep Vein Open Discontinued Medications Generic Name Dose Route Start Last Admin Trade Name Freq PRN Reason Stop Dose Admin Fluconazole 100 mg 05/25/17 18:06 05/25/17 18:10 Diflucan PO 05/25/17 18:07 100 mg ONETIME ONE Administration Sodium Chloride 1,000 mls @ 999 mls/hr 05/25/17 16:32 05/25/17 16:52 Normal Saline IV 05/25/17 17:32 999 mls/hr .BOLUS ONE Administration Ibuprofen 800 mg 05/25/17 16:32 05/25/17 16:53 Motrin PO 05/25/17 16:33 800 mg ONETIME ONE Administration Insulin Human Regular 6 unit 05/25/17 16:43 05/25/17 16:53 Humulin R SUBCUT 05/25/17 16:44 6 units ONETIME ONE Administration Protocol Insulin Human Regular 4 unit 05/25/17 17:59 05/25/17 18:04 Humulin R SUBCUT 05/25/17 18:00 4 units ONETIME ONE Administration Protocol Nitrofurantoin Macrocrystals 100 mg 05/25/17 18:06 05/25/17 18:10 Macrobid PO 05/25/17 18:07 100 mg ONETIME ONE Administration - Re-Assessments/Exams Free Text/Narrative Re-Assessment/Exam: 05/25/17 18:01 Pt sleeping on stretcher, awakens to painful stimulation and c/o pain. Will continue to treat elevated glucose. 05/25/17 18:37 Blood glucose decreased, will dc home Departure - Departure Time of Disposition: 18:38 Disposition: [facility] Condition: Good Clinical Impression: Hyperglycemia, UTI, Urinary tract infectious disease - Discharge Information Instructions: Urinary Tract Infection, Adult, Type 1 Diabetes Mellitus, Adult Forms: ED Department Discharge Additional Instructions: Take the macrobid for the entire course. return for any worsening symptoms. - My Orders Last 24 Hours: My Active Orders 05/25/17 15:56 Blood Glucose Check, Bedside [RC] ONETIME 05/25/17 16:31 Sodium Chloride 0.9% [Saline Flush] 10 ml FLUSH ASDIRECTED PRN Saline Lock Insert [OM.PC] Stat - Assessment/Plan Last 24 Hours: My Active Orders 05/25/17 15:56 Blood Glucose Check, Bedside [RC] ONETIME 05/25/17 16:31 Sodium Chloride 0.9% [Saline Flush] 10 ml FLUSH ASDIRECTED PRN Saline Lock Insert [OM.PC] Stat
[2017-05-25] MEDS ORDERED: Insulin Regular, Human 100 Units/ML 3 ML Vial SUBCUT ONE ×2 (16:43→17:59)
[2017-05-25 17:12] LABS: CHLORIDE,CL 98 mmol/L (101-111); SODIUM,NA 134 mmol/L (135-145)
[2017-05-25] MEDS ORDERED: Nitrofurantoin Monohydrate/Macrocrystalline 100 MG Cap PO ONE (18:06)
[2017-05-25] MEDS ORDERED: Fluconazole 100 MG Tab PO ONE (18:06)
[2017-05-25 18:33] VITALS: BP 127/91
== END 2017-05-25 18:46 | disposition home or self-care (01) ==
LOC: DL.ED 15:14
DX: E10.65 Type 1 diabetes mellitus with hyperglycemia (principal); N39.0 Urinary tract infection, site not specified; I10 Essential (primary) hypertension; E10.9 Type 1 diabetes mellitus without complications; F17.210 Nicotine dependence, cigarettes, uncomplicated; Z79.82 Long term (current) use of aspirin; Z79.4 Long term (current) use of insulin
CPT/HCPCS: 36415; 80048; 80305; 81001; 82962; 85025; 96360; 96372; 99283; A9270; J1815; J7030; J7050

== ENCOUNTER 2020-11-20 13:44 | Emergency (ER) | payer MEDICAID, OTHER ==
[2020-11-20 13:55] VITALS: BP 134/90; PULSE 87
[2020-11-20] MEDS ORDERED: Sodium Chloride 0.9% 10 ML Syringe FLUSH PRN (14:38)
[2020-11-20] MEDS ORDERED: Sodium Chloride 0.9% 1,000 ML IV ONE (14:41)
[2020-11-20] MEDS ORDERED: Iopamidol 612 MG/ML 100 ML Bottle IVPUSH ONE (15:12)
[2020-11-20 15:38] LABS: CHLORIDE,CL 102 mmol/L (98-107); SODIUM,NA 140 mmol/L (136-145)
[2020-11-20] MEDS ORDERED: Acetaminophen 325 MG Tab PO ONE (16:30)
[2020-11-20] MEDS ORDERED: Bisacodyl 5 MG Tab PO ONE (16:30)
[2020-11-20] MEDS ORDERED: Lactulose Soln 10 GM/15 ML 30 ML UD Cup PO ONE (16:31)
--- NOTE | 2020-11-20 16:49 | EDM.PDOC ---
"Scribed by Christy Aguilar 11/20/20 [id number] for Tesha Henderson MD ED HPI GENERAL MEDICAL PROBLEM - General Chief Complaint: Abdominal Pain Stated Complaint: AMBULANCE Time Seen by Provider: 11/20/20 14:05 Source of Information: Reports: Patient, RN, RN Notes Reviewed History Limitations: Reports: No Limitations - History of Present Illness INITIAL COMMENTS - FREE TEXT/NARRATIVE: pt states that she has been having right lower abd pain that radiates into her lower right back, states that this pain started after she had been unable to have a BM for a while, states that it has been at least 5 days since she has had a normal BM, states that the last 2 days she has been taking a laxetive and did have a very small BM today but the pain did not get better. Pt still has her appendix. Pt states that she uses narcotics recreationally and has not had any in 2 days. Pt states narcotics do not usually cause her constipation. Denies colón, vision prob, cp, sob, pelvic pain, difficulty voiding, extremity pain. Onset: Other (2 days) Duration: Day(s): Location: Reports: Abdomen Quality: Reports: Sharp Severity: Moderate Improves with: Reports: None Worsens with: Reports: Movement Associated Symptoms: Reports: Other (constipation) Right Lower Abdomen Pain Score (Numeric/FACES): 7 - Related Data Allergies Allergy/AdvReac Type Severity Reaction Status Date / Time No Known Allergies Allergy Verified 11/20/18 11:14 Home Meds: Home Meds Insulin Detemir [Levemir] 30 unit SUBCUT BEDTIME 12/06/13 [History] Gabapentin [Neurontin] 300 mg PO TID 10/12/18 [History] Insulin Aspart [NovoLOG] 25 unit SUBCUT TIDAC 10/12/18 [History] lisinopriL [Lisinopril] 20 mg PO DAILY 11/20/20 [History] Past Medical History HEENT History: Reports: None Cardiovascular History: Reports: Heart Failure, Hypertension Respiratory History: Reports: None Gastrointestinal History: Reports: None Genitourinary History: Reports: Pyelonephritis, UTI, Recurrent Other Genitourinary History: dysfunctional bladder EMTS History: Reports: Musculoskeletal History: Reports: None Neurological History: Reports: Other (See Below) Psychiatric History: Reports: Addiction Endocrine/Metabolic History: Reports: Diabetes, Type I Hematologic History: Reports: None Immunologic History: Reports: None Oncologic (Cancer) History: Reports: None Dermatologic History: Reports: None - Infectious Disease History Infectious Disease History: Reports: Hepatitis C - Past Surgical History Head Surgeries/Procedures: Reports: None Cardiovascular Surgical History: Reports: None Female Surgical History: Reports: None Other Female Surgeries/Procedures: 2 babies and one misscarriage Musculoskeletal Surgical History: Reports: Other (See Below) Other Musculoskeletal Surgeries/Procedures:: surgery to repair fractured wrist Social & Family History - Family History Family Medical History: No Pertinent Family History Endocrine/Metabolic: Reports: Diabetes, Type I - Tobacco Use Tobacco Use Status *Q: Current Every Day Tobacco User Years of Tobacco use: 10 Packs/Tins Daily: 0.1 Second Hand Smoke Exposure: Yes - Caffeine Use Caffeine Use: Reports: Coffee, Soda - Recreational Drug Use Recreational Drug Use: Yes Drug Use in Last 12 Months: Yes Recreational Drug Type: Reports: Methamphetamine, Oxycodone Recreational Drug Use Frequency: Patient Refuses To Answer ED ROS GENERAL - Review of Systems Review Of Systems: Comprehensive ROS is negative, except as noted in HPI. ED EXAM, GI/ABD - Physical Exam Exam: See Below Exam Limited By: No Limitations General Appearance: Alert, WD/WN, No Apparent Distress Throat/Mouth: Normal Inspection, Normal Lips, Normal Teeth, Normal Gums, Normal Oropharynx, Normal Voice, No Airway Compromise Head: Atraumatic, Normocephalic Neck: Normal Inspection, Supple, Non-Tender, Full Range of Motion Respiratory/Chest: No Respiratory Distress, Lungs Clear, Normal Breath Sounds, No Accessory Muscle Use, Chest Non-Tender Cardiovascular: Normal Peripheral Pulses, Regular Rate, Rhythm, No Edema, No JV D, No Murmur GI/Abdominal Exam: Normal Bowel Sounds, Soft, Non-Tender, No Organomegaly, No Distention, No Abnormal Bruit, No Mass, Pelvis Stable (Female) Exam: Deferred Rectal (Female) Exam: Deferred Back Exam: Normal Inspection, Full Range of Motion, NT Extremities: Normal Inspection, Normal Range of Motion, Non-Tender, Normal Capillary Refill, No Pedal Edema Neurological: Alert, Oriented, CN II-XII Intact, Normal Cognition, Normal Gait, Normal Reflexes, No Motor/Sensory Deficits Psychiatric: Normal Affect, Normal Mood Skin Exam: Warm, Dry, Intact, Normal Color Course - Vital Signs Last Recorded V/S: Last Vital Signs Temp 97.9 F 11/20/20 13:49 Pulse 87 11/20/20 13:49 Resp 18 11/20/20 13:49 BP 134/90 11/20/20 13:49 Pulse Ox 100 11/20/20 13:49 - Orders/Labs/Meds Orders: Active Orders 24 hr Category Date Time Status Sodium Chloride 0.9% [Saline Flush] Med 11/20/20 14:38 Active 10 ml FLUSH ASDIRECTED PRN Peripheral IV Insertion Adult [OM.PC] Stat Oth 11/20/20 14:39 Ordered Medication Orders Sodium Chloride (Saline Flush) 10 ml FLUSH ASDIRECTED PRN PRN Reason: Keep Vein Open Last Admin: 11/20/20 14:44 Dose: 10 ml Documented by: JESSEE Labs: Laboratory Tests 11/20/20 11/20/20 11/20/20 Range/Units 14:27 14:27 14:27 WBC (5.0-10.0) 10^3/uL RBC (4.2-5.4) 10^6/uL Hgb (12.0-16.0) g/dL Hct (37.0-47.0) % MCV (80-100) fL MCH (27.0-34.0) pg MCHC (33.0-35.0) g/dL Plt Count (150-450) 10^3/uL Neut % (Auto) (42.2-75.2) % Lymph % (Auto) (20.5-50.1) % [place] % (Auto) (2-8) % Eos % (Auto) (1.0-3.0) % Baso % (Auto) (0.0-1.0) % Sodium (136-145) mmol/L Potassium (3.5-5.1) mmol/L Chloride (98-107) mmol/L Carbon Dioxide (21-32) mmol/L Anion Gap (7-13) mEq/L BUN (7-18) mg/dL Creatinine (0.55-1.02) mg/dL Est Cr Clr Drug Dosing mL/min Estimated GFR (MDRD) BUN/Creatinine Ratio (No establ ref range) Glucose (74-99) mg/dL Calcium (8.5-10.1) mg/dL Total Bilirubin (0.2-1.0) mg/dL AST (15-37) U/L ALT (14-59) U/L Alkaline Phosphatase (46-116) U/L Total Protein (6.4-8.2) g/dL Albumin (3.4-5.0) g/dL Globulin Albumin/Globulin Ratio Urine Color Yellow (YELLOW) Urine Appearance Clear (CLEAR) Urine pH 7.0 (5.0-9.0) Ur Specific [place] 1.025 (1.005-1.030) Urine Protein 100 H (NEGATIVE) Urine Glucose (UA) 500 H (NEGATIVE) Urine Ketones Negative (NEGATIVE) Urine Occult Blood Negative (NEGATIVE) Urine Nitrite Negative (NEGATIVE) Urine Bilirubin Negative (NEGATIVE) Urine Urobilinogen 2.0 H (0.2-1.0) mg/dL Ur Leukocyte Esterase Negative (NEGATIVE) Urine RBC 0-5 /HPF Urine WBC 5-10 H (0-5/HPF) /HPF Ur Epithelial Cells Occasional (NOT SEEN) /HPF Urine Bacteria Occasional (0-FEW/HPF) /HPF Urine HCG, Qual Negative Urine Opiates Screen Negative (NEGATIVE) Ur Oxycodone Screen Negative (NEGATIVE) Urine Methadone Screen Negative (NEGATIVE) Ur Barbiturates Screen Negative (NEGATIVE) U Tricyclic Antidepress Negative (NEGATIVE) Ur Phencyclidine Scrn Negative (NEGATIVE) Ur Amphetamine Screen Positive H (NEGATIVE) U Methamphetamines Scrn Positive H (NEGATIVE) Urine MDMA Screen Negative (NEGATIVE) U Benzodiazepines Scrn Negative (NEGATIVE) Urine Cocaine Screen Negative (NEGATIVE) U Marijuana (THC) Screen Negative (NEGATIVE) Ketones 11/20/20 11/20/20 11/20/20 Range/Units 14:54 14:54 14:54 WBC 10.7 H (5.0-10.0) 10^3/uL RBC 4.40 (4.2-5.4) 10^6/uL Hgb 11.7 L (12.0-16.0) g/dL Hct 35.2 L (37.0-47.0) % MCV 80.0 (80-100) fL MCH 26.6 L (27.0-34.0) pg MCHC 33.2 (33.0-35.0) g/dL Plt Count 495 H D (150-450) 10^3/uL Neut % (Auto) 77.1 H (42.2-75.2) % Lymph % (Auto) 16.9 L (20.5-50.1) % [place] % (Auto) 5.1 (2-8) % Eos % (Auto) 0.7 L (1.0-3.0) % Baso % (Auto) 0.2 (0.0-1.0) % Sodium 140 (136-145) mmol/L Potassium 4.0 (3.5-5.1) mmol/L Chloride 102 (98-107) mmol/L Carbon Dioxide 23 (21-32) mmol/L Anion Gap 19.0 H (7-13) mEq/L BUN 9 (7-18) mg/dL Creatinine 0.72 (0.55-1.02) mg/dL Est Cr Clr Drug Dosing 83.84 mL/min Estimated GFR (MDRD) > 60 BUN/Creatinine Ratio 12.5 (No establ ref range) Glucose 242 H (74-99) mg/dL Calcium 8.7 (8.5-10.1) mg/dL Total Bilirubin 0.3 (0.2-1.0) mg/dL AST 7 L (15-37) U/L ALT 12 L (14-59) U/L Alkaline Phosphatase 108 (46-116) U/L Total Protein 7.5 (6.4-8.2) g/dL Albumin 3.1 L (3.4-5.0) g/dL Globulin 4.4 Albumin/Globulin Ratio 0.70 Urine Color (YELLOW) Urine Appearance (CLEAR) Urine pH (5.0-9.0) Ur Specific [place] (1.005-1.030) Urine Protein (NEGATIVE) Urine Glucose (UA) (NEGATIVE) Urine Ketones (NEGATIVE) Urine Occult Blood (NEGATIVE) Urine Nitrite (NEGATIVE) Urine Bilirubin (NEGATIVE) Urine Urobilinogen (0.2-1.0) mg/dL Ur Leukocyte Esterase (NEGATIVE) Urine RBC /HPF Urine WBC (0-5/HPF) /HPF Ur Epithelial Cells (NOT SEEN) /HPF Urine Bacteria (0-FEW/HPF) /HPF Urine HCG, Qual Urine Opiates Screen (NEGATIVE) Ur Oxycodone Screen (NEGATIVE) Urine Methadone Screen (NEGATIVE) Ur Barbiturates Screen (NEGATIVE) U Tricyclic Antidepress (NEGATIVE) Ur Phencyclidine Scrn (NEGATIVE) Ur Amphetamine Screen (NEGATIVE) U Methamphetamines Scrn (NEGATIVE) Urine MDMA Screen (NEGATIVE) U Benzodiazepines Scrn (NEGATIVE) Urine Cocaine Screen (NEGATIVE) U Marijuana (THC) Screen (NEGATIVE) Ketones Negative Meds: Medications Generic Name Dose Route Start Last Admin Trade Name Freq PRN Reason Stop Dose Admin Sodium Chloride 10 ml 11/20/20 14:38 11/20/20 14:44 Saline Flush FLUSH 10 ml ASDIRECTED PRN Administration Keep Vein Open Discontinued Medications Generic Name Dose Route Start Last Admin Trade Name Freq PRN Reason Stop Dose Admin Acetaminophen 650 mg 11/20/20 16:30 Tylenol PO 11/20/20 16:31 NOW ONE Bisacodyl 10 mg 11/20/20 16:30 Dulcolax PO 11/20/20 16:31 ONETIME ONE Sodium Chloride 1,000 mls @ 999 mls/hr 11/20/20 14:41 11/20/20 16:16 Normal Saline IV 11/20/20 15:41 Infused .BOLUS ONE Infusion Iopamidol 100 ml 11/20/20 15:12 11/20/20 15:59 Isovue-300 (61%) IVPUSH 11/20/20 15:13 100 ml ONETIME ONE Administration Lactulose 30 gm 11/20/20 16:31 Cephulac PO 11/20/20 16:32 ONETIME ONE - Radiology Interpretation Free Text/Narrative:: [facility] Final Radiology Report Call: [phone] assistance Online chat: [email or web address] Name: DEMARCO ZAMUDIO Age: 30Years F Date: 11/20/2020 SSN: -- : [id number] Study: CT ABDOMEN PELVIS W CONT Requesting Physician: TESHA HENDERSON Images: [id number] Addl Studies: Provided Clinical History: RLQ Abdominal pain possible appendicitis Contrast: With Contrast Medium: Contrast Amount: 75 mL Contrast Method: Intravenous (IV) Page 1 of 2 PROCEDURE INFORMATION: Exam: CT Abdomen And Pelvis With Contrast Exam date and time: 11/20/2020 4:02 PM Age: 30 years old Clinical indication: Constipation and other: Wbc 10,700; Additional info: Rlq abdominal pain possible appendicitis TECHNIQUE: Imaging protocol: Computed tomography of the abdomen and pelvis with intravenous contrast. Radiation optimization: All CT scans at this facility use at least one of these dose optimization techniques: automated exposure control; mA and/or kV adjustment per patient size (includes targeted exams where dose is matched to clinical indication); or iterative reconstr uction. Contrast material: [id number]; Contrast volume: 75 ml; Contrast route: INTRAVENOUS (IV); COMPARISON: CT Abdomen Pelvis w Cont 12/20/2016 5:30 PM FINDINGS: Lungs: Stable focal areas of ground-glass attenuation in left lung base when compared with the CT 12/20/2016. Liver: Normal. No mass. Gallbladder and bile ducts: Normal. No calcified stones. No ductal dilation. Pancreas: Normal. No ductal dilation. Spleen: Normal. No splenomegaly. Adrenal glands: Stable 1.6 cm low-density lesion in left adrenal gland consistent with a benign adenoma. Kidneys and ureters: Cortical scarring in the right kidney. Stomach and bowel: Large amount of stool in the colon. No evidence of obstruction. [facility] | Final Radiology Report CONFIDENTIALITY STATEMENT This report is intended only for use by the referring physician, and only in accordance with law. If you received this in error, call [phone]. Page 2 of 2 Appendix: No evidence of appendicitis. Intraperitoneal space: Small amount of free fluid in the pelvis. Vasculature: Unremarkable. No abdominal aortic aneurysm. Lymph nodes: Unremarkable. No enlarged lymph nodes. Urinary bladder: Unremarkable as visualized. Reproductive: Unremarkable as visualized. Bones/joints: Bilateral L5 spondylolysis. No evidence of spondylolisthesis. Soft tissues: Unremarkable. IMPRESSION: 1. No CT findings to suggest appendicitis. 2. Large amount of stool in the colon. 3. Small amount of free fluid in the pelvis 4. 1.7 cm left adrenal adenoma Thank you for allowing us to participate in the care of your patient. Dictated and Authenticated by: Grace Lopez MD 11/20/2020 4:47 PM Central Time ([place] & [facility]) Departure - Departure Time of Disposition: 16:42 Disposition: Home, Self-Care 01 Condition: Good Clinical Impression: Polysubstance abuse, Adenoma of left adrenal gland Constipation Qualifiers: Constipation type: drug induced constipation Qualified Code(s): K59.03 - Drug induced constipation Uncontrolled diabetes mellitus Qualifiers: Diabetes mellitus type: type 1 Glycemic state: with hyperglycemia Qualified Code(s): E10.65 - Type 1 diabetes mellitus with hyperglycemia - Discharge Information *PRESCRIPTION DRUG MONITORING PROGRAM REVIEWED*: No *COPY OF PRESCRIPTION DRUG MONITORING REPORT IN PATIENT KASEY: No Instructions: Constipation, Adult, Finding Treatment for Addiction Forms: ED Department Discharge Additional Instructions: Rx: Lactulose Syrup Rx: Dulcolax 5mg Drink plenty of water or fruit juice. Eat fresh fruits and vegetables, and eat prunes. Avoid breads, pasta, rice, potato, banana, and cheese. Avoid opiates and other medications or substances which may cause constipation. Abstain from substance use. Consider going to a treatment program if you are unable to quit on your own. Monitor your blood sugar and manage your blood glucose closely. Follow up in clinic this week for recheck of your constipation and diabetes, and further evaluation of the left adrenal adenoma found on the CT scan today. Return to ER if worse at any time. Sepsis Event Note (ED) - Evaluation Sepsis Screening Result: No Definite Risk - Focused Exam Vital Signs: Vital Signs Temp Pulse Resp BP Pulse Ox 11/20/20 13:49 97.9 F 87 18 134/90 100 - My Orders Last 24 Hours: My Active Orders 11/20/20 14:38 Sodium Chloride 0.9% [Saline Flush] 10 ml FLUSH ASDIRECTED PRN 11/20/20 14:39 Peripheral IV Insertion Adult [OM.PC] Stat - Assessment/Plan Last 24 Hours: My Active Orders 11/20/20 14:38 Sodium Chloride 0.9% [Saline Flush] 10 ml FLUSH ASDIRECTED PRN 11/20/20 14:39 Peripheral IV Insertion Adult [OM.PC] Stat I have read and agree with the documentation that has been completed regarding this visit. By signing this record, I attest that the documentation was completed in my physical presence and is an accurate record of the encounter."
== END 2020-11-20 17:02 | disposition home or self-care (01) ==
LOC: DL.ED 13:44
DX: K59.03 Drug induced constipation (principal); T47.4X5A Adverse effect of other laxatives, initial encounter; E10.65 Type 1 diabetes mellitus with hyperglycemia; D35.02 Benign neoplasm of left adrenal gland; F15.10 Other stimulant abuse, uncomplicated; I11.0 Hypertensive heart disease with heart failure; I50.9 Heart failure, unspecified; Z72.0 Tobacco use; Z79.899 Other long term (current) drug therapy
CPT/HCPCS: 36415; 74177; 80053; 80305-QW; 81001; 81025; 82009; 85025; 99284; 99284-25; A9270-GY; J7030; Q9967

== ENCOUNTER 2020-11-28 17:41 | Emergency (ER) | payer MEDICAID ==
[2020-11-28] MEDS ORDERED: Magnesium Citrate Solution 296 ML Bottle PO ONE (17:42)
[2020-11-28 18:21] LABS: ANION GAP 12.9 mEq/L (7-13); CHLORIDE,CL 95 mmol/L (98-107); SODIUM,NA 131 mmol/L (136-145)
--- NOTE | 2020-11-28 19:04 | EDM.PDOC ---
ED HPI GENERAL MEDICAL PROBLEM - General Chief Complaint: Abdominal Pain Stated Complaint: ABD PAIN/VOMITING Time Seen by Provider: 11/28/20 18:05 Source of Information: Reports: Patient, RN History Limitations: Reports: No Limitations - History of Present Illness INITIAL COMMENTS - FREE TEXT/NARRATIVE: ED with c/o RLQ pain for 2 weeks. constipated. Only few small hard balls in past 2 weeks. Vomiting Saturday and Saturday non today. In ED on 11/20 for same. Given RX but "baby ate it. No fever. LMP just completed. Admits Meth IV on Saturday. No ENT sx. No difficulty breathing. No urinary sx. Pain radiates from RLQ to Low back. right abdomen Pain Score (Numeric/FACES): 9 - Related Data Allergies Allergy/AdvReac Type Severity Reaction Status Date / Time No Known Allergies Allergy Verified 11/28/20 17:58 Home Meds: Home Meds Insulin Detemir [Levemir] 30 unit SUBCUT BEDTIME 12/06/13 [History] Gabapentin [Neurontin] 300 mg PO TID 10/12/18 [History] Insulin Aspart [NovoLOG] 25 unit SUBCUT TIDAC 10/12/18 [History] lisinopriL [Lisinopril] 20 mg PO DAILY 11/20/20 [History] Past Medical History HEENT History: Reports: None Cardiovascular History: Reports: Heart Failure, Hypertension Respiratory History: Reports: None Gastrointestinal History: Reports: None Genitourinary History: Reports: Pyelonephritis, UTI, Recurrent Other Genitourinary History: dysfunctional bladder APPLICATION ARCHITECT History: Reports: Musculoskeletal History: Reports: None Neurological History: Reports: Other (See Below) Psychiatric History: Reports: Addiction Endocrine/Metabolic History: Reports: Diabetes, Type I Hematologic History: Reports: None Immunologic History: Reports: None Oncologic (Cancer) History: Reports: None Dermatologic History: Reports: None - Infectious Disease History Infectious Disease History: Reports: Hepatitis C, Novel Coronavirus - Past Surgical History Head Surgeries/Procedures: Reports: None Cardiovascular Surgical History: Reports: None Female Surgical History: Reports: Tubal Ligation Other Female Surgeries/Procedures: 2 babies and one misscarriage Musculoskeletal Surgical History: Reports: Other (See Below) Other Musculoskeletal Surgeries/Procedures:: surgery to repair fractured wrist Social & Family History - Family History Family Medical History: No Pertinent Family History Endocrine/Metabolic: Reports: Diabetes, Type I - Tobacco Use Tobacco Use Status *Q: Current Every Day Tobacco User Years of Tobacco use: 10 Packs/Tins Daily: 0.5 - Caffeine Use Caffeine Use: Reports: None - Recreational Drug Use Recreational Drug Use: Yes Recreational Drug Type: Reports: Methamphetamine Recreational Drug Use Frequency: Weekly ED ROS GENERAL - Review of Systems Review Of Systems: Comprehensive ROS is negative, except as noted in HPI. ED EXAM, GI/ABD - Physical Exam Exam: See Below Exam Limited By: No Limitations General Appearance: Alert, Mild Distress, Thin Eyes: Bilateral: EOMI Ears: Normal External Exam Nose: Normal Inspection Throat/Mouth: Normal Inspection Head: Atraumatic, Normocephalic Neck: Normal Inspection Respiratory/Chest: No Respiratory Distress, Lungs Clear, Normal Breath Sounds Cardiovascular: Regular Rate, Rhythm GI/Abdominal Exam: Tender, Abnormal Bowel Sounds (hyperactive throughout), Other (stool palpable mid and RLQ abdomen). No: Guarding Extremities: Normal Inspection Neurological: Alert, Oriented Skin Exam: Other (Track lisa.) Course - Vital Signs Last Recorded V/S: Last Vital Signs Temp 98.9 F 11/28/20 19:35 Pulse 97 11/28/20 19:35 Resp 18 11/28/20 19:35 BP 121/73 11/28/20 19:35 Pulse Ox 98 11/28/20 19:35 - Orders/Labs/Meds Labs: Laboratory Tests 11/28/20 11/28/20 11/28/20 Range/Units 17:57 17:57 17:57 WBC 9.5 (5.0-10.0) 10^3/uL RBC 4.34 (4.2-5.4) 10^6/uL Hgb 11.4 L (12.0-16.0) g/dL Hct 34.7 L (37.0-47.0) % MCV 80.0 (80-100) fL MCH 26.3 L (27.0-34.0) pg MCHC 32.9 L (33.0-35.0) g/dL Plt Count 632 H D (150-450) 10^3/uL Neut % (Auto) 74.4 (42.2-75.2) % Lymph % (Auto) 18.4 L (20.5-50.1) % [place] % (Auto) 4.9 (2-8) % Eos % (Auto) 1.9 (1.0-3.0) % Baso % (Auto) 0.4 (0.0-1.0) % Sodium 131 L (136-145) mmol/L Potassium 3.9 (3.5-5.1) mmol/L Chloride 95 L (98-107) mmol/L Carbon Dioxide 27 (21-32) mmol/L Anion Gap 12.9 (7-13) mEq/L BUN 11 (7-18) mg/dL Creatinine 0.96 (0.55-1.02) mg/dL Est Cr Clr Drug Dosing 60.60 mL/min Estimated GFR (MDRD) > 60 BUN/Creatinine Ratio 11.5 (No establ ref range) Glucose 299 H (74-99) mg/dL POC Glucose (70-105) mg/dl Lactic Acid 2.3 H* (0.4-2.0) mmol/L Calcium 8.3 L (8.5-10.1) mg/dL Total Bilirubin 0.4 (0.2-1.0) mg/dL AST 10 L (15-37) U/L ALT 29 (14-59) U/L Alkaline Phosphatase 135 H (46-116) U/L Total Protein 7.9 (6.4-8.2) g/dL Albumin 2.9 L (3.4-5.0) g/dL Globulin 5.0 Albumin/Globulin Ratio 0.58 Amylase 15 L (25-115) U/L Lipase 29 L (73-393) U/L HCG, Qual Negative Urine Color (YELLOW) Urine Appearance (CLEAR) Urine pH (5.0-9.0) Ur Specific [place] (1.005-1.030) Urine Protein (NEGATIVE) Urine Glucose (UA) (NEGATIVE) Urine Ketones (NEGATIVE) Urine Occult Blood (NEGATIVE) Urine Nitrite (NEGATIVE) Urine Bilirubin (NEGATIVE) Urine Urobilinogen (0.2-1.0) mg/dL Ur Leukocyte Esterase (NEGATIVE) Urine RBC /HPF Urine WBC (0-5/HPF) /HPF Ur Epithelial Cells (NOT SEEN) /HPF Amorphous Sediment (NOT SEEN) /HPF Urine Bacteria (0-FEW/HPF) /HPF Urine Mucus (NOT SEEN) /LPF Urine Opiates Screen (NEGATIVE) Ur Oxycodone Screen (NEGATIVE) Urine Methadone Screen (NEGATIVE) Ur Barbiturates Screen (NEGATIVE) U Tricyclic Antidepress (NEGATIVE) Ur Phencyclidine Scrn (NEGATIVE) Ur Amphetamine Screen (NEGATIVE) U Methamphetamines Scrn (NEGATIVE) Urine MDMA Screen (NEGATIVE) U Benzodiazepines Scrn (NEGATIVE) Urine Cocaine Screen (NEGATIVE) U Marijuana (THC) Screen (NEGATIVE) 11/28/20 11/28/20 11/28/20 Range/Units 18:05 18:17 18:17 WBC (5.0-10.0) 10^3/uL RBC (4.2-5.4) 10^6/uL Hgb (12.0-16.0) g/dL Hct (37.0-47.0) % MCV (80-100) fL MCH (27.0-34.0) pg MCHC (33.0-35.0) g/dL Plt Count (150-450) 10^3/uL Neut % (Auto) (42.2-75.2) % Lymph % (Auto) (20.5-50.1) % [place] % (Auto) (2-8) % Eos % (Auto) (1.0-3.0) % Baso % (Auto) (0.0-1.0) % Sodium (136-145) mmol/L Potassium (3.5-5.1) mmol/L Chloride (98-107) mmol/L Carbon Dioxide (21-32) mmol/L Anion Gap (7-13) mEq/L BUN (7-18) mg/dL Creatinine (0.55-1.02) mg/dL Est Cr Clr Drug Dosing mL/min Estimated GFR (MDRD) BUN/Creatinine Ratio (No establ ref range) Glucose (74-99) mg/dL POC Glucose 334 H (70-105) mg/dl Lactic Acid (0.4-2.0) mmol/L Calcium (8.5-10.1) mg/dL Total Bilirubin (0.2-1.0) mg/dL AST (15-37) U/L ALT (14-59) U/L Alkaline Phosphatase (46-116) U/L Total Protein (6.4-8.2) g/dL Albumin (3.4-5.0) g/dL Globulin Albumin/Globulin Ratio Amylase (25-115) U/L Lipase (73-393) U/L HCG, Qual Urine Color Light yellow (YELLOW) Urine Appearance Slightly cloudy (CLEAR) Urine pH 6.0 (5.0-9.0) Ur Specific [place] 1.025 (1.005-1.030) Urine Protein 30 H (NEGATIVE) Urine Glucose (UA) 500 H (NEGATIVE) Urine Ketones Negative (NEGATIVE) Urine Occult Blood Trace-intact H (NEGATIVE) Urine Nitrite Negative (NEGATIVE) Urine Bilirubin Negative (NEGATIVE) Urine Urobilinogen >=8.0 H (0.2-1.0) mg/dL Ur Leukocyte Esterase Negative (NEGATIVE) Urine RBC 0-5 /HPF Urine WBC 5-10 H (0-5/HPF) /HPF Ur Epithelial Cells Moderate H (NOT SEEN) /HPF Amorphous Sediment Few (NOT SEEN) /HPF Urine Bacteria Few (0-FEW/HPF) /HPF Urine Mucus Few H (NOT SEEN) /LPF Urine Opiates Screen Negative (NEGATIVE) Ur Oxycodone Screen Negative (NEGATIVE) Urine Methadone Screen Negative (NEGATIVE) Ur Barbiturates Screen Negative (NEGATIVE) U Tricyclic Antidepress Negative (NEGATIVE) Ur Phencyclidine Scrn Negative (NEGATIVE) Ur Amphetamine Screen Negative (NEGATIVE) U Methamphetamines Scrn Positive H (NEGATIVE) Urine MDMA Screen Negative (NEGATIVE) U Benzodiazepines Scrn Negative (NEGATIVE) Urine Cocaine Screen Negative (NEGATIVE) U Marijuana (THC) Screen Negative (NEGATIVE) 11/28/20 11/28/20 Range/Units 19:23 20:07 WBC (5.0-10.0) 10^3/uL RBC (4.2-5.4) 10^6/uL Hgb (12.0-16.0) g/dL Hct (37.0-47.0) % MCV (80-100) fL MCH (27.0-34.0) pg MCHC (33.0-35.0) g/dL Plt Count (150-450) 10^3/uL Neut % (Auto) (42.2-75.2) % Lymph % (Auto) (20.5-50.1) % [place] % (Auto) (2-8) % Eos % (Auto) (1.0-3.0) % Baso % (Auto) (0.0-1.0) % Sodium (136-145) mmol/L Potassium (3.5-5.1) mmol/L Chloride (98-107) mmol/L Carbon Dioxide (21-32) mmol/L Anion Gap (7-13) mEq/L BUN (7-18) mg/dL Creatinine (0.55-1.02) mg/dL Est Cr Clr Drug Dosing mL/min Estimated GFR (MDRD) BUN/Creatinine Ratio (No establ ref range) Glucose (74-99) mg/dL POC Glucose 302 H 104 (70-105) mg/dl Lactic Acid (0.4-2.0) mmol/L Calcium (8.5-10.1) mg/dL Total Bilirubin (0.2-1.0) mg/dL AST (15-37) U/L ALT (14-59) U/L Alkaline Phosphatase (46-116) U/L Total Protein (6.4-8.2) g/dL Albumin (3.4-5.0) g/dL Globulin Albumin/Globulin Ratio Amylase (25-115) U/L Lipase (73-393) U/L HCG, Qual Urine Color (YELLOW) Urine Appearance (CLEAR) Urine pH (5.0-9.0) Ur Specific [place] (1.005-1.030) Urine Protein (NEGATIVE) Urine Glucose (UA) (NEGATIVE) Urine Ketones (NEGATIVE) Urine Occult Blood (NEGATIVE) Urine Nitrite (NEGATIVE) Urine Bilirubin (NEGATIVE) Urine Urobilinogen (0.2-1.0) mg/dL Ur Leukocyte Esterase (NEGATIVE) Urine RBC /HPF Urine WBC (0-5/HPF) /HPF Ur Epithelial Cells (NOT SEEN) /HPF Amorphous Sediment (NOT SEEN) /HPF Urine Bacteria (0-FEW/HPF) /HPF Urine Mucus (NOT SEEN) /LPF Urine Opiates Screen (NEGATIVE) Ur Oxycodone Screen (NEGATIVE) Urine Methadone Screen (NEGATIVE) Ur Barbiturates Screen (NEGATIVE) U Tricyclic Antidepress (NEGATIVE) Ur Phencyclidine Scrn (NEGATIVE) Ur Amphetamine Screen (NEGATIVE) U Methamphetamines Scrn (NEGATIVE) Urine MDMA Screen (NEGATIVE) U Benzodiazepines Scrn (NEGATIVE) Urine Cocaine Screen (NEGATIVE) U Marijuana (THC) Screen (NEGATIVE) Meds: Medications Discontinued Medications Generic Name Dose Route Start Last Admin Trade Name Freq PRN Reason Stop Dose Admin Dextrose/Water 50 ml 11/28/20 19:19 Dextrose 50% In Water IV ASDIRECTED PRN Hypoglycemia Fentanyl 50 mcg 11/28/20 19:15 11/28/20 19:32 Sublimaze IVPUSH 11/28/20 19:16 50 mcg ONETIME ONE Administration Fentanyl 50 mcg 11/28/20 19:23 Sublimaze IVPUSH ONETIME PRN Pain (severe 7-10) Glucagon 1 mg 11/28/20 19:19 Glucagen IM ASDIRECTED PRN Hypoglycemia Insulin Human Regular 5 unit 11/28/20 19:19 11/28/20 19:28 Humulin R IV 11/28/20 19:20 5 units ONETIME ONE Administration Magnesium Citrate Confirm 11/28/20 20:47 11/28/20 21:16 Citrate Of Magnesia Administered 11/28/20 20:48 Not Given Dose 296 ml .ROUTE .STK-MED ONE Ondansetron HCl 4 mg 11/28/20 19:15 11/28/20 19:29 Zofran IVPUSH 11/28/20 19:16 4 mg ONETIME ONE Administration Departure - Departure Time of Disposition: 20:31 Disposition: Home, Self-Care 01 Condition: Good Clinical Impression: Methamphetamine abuse, Constipation by delayed colonic transit, Hyperglycemia Uncontrolled diabetes mellitus Qualifiers: Diabetes mellitus type: type 1 Glycemic state: with hyperglycemia Qualified Code(s): E10.65 - Type 1 diabetes mellitus with hyperglycemia - Discharge Information *PRESCRIPTION DRUG MONITORING PROGRAM REVIEWED*: No Instructions: Amphetamines Use Disorder, Chronic Constipation Referrals: Georges Martell MD [Primary Care Provider] - Forms: ED Department Discharge Additional Instructions: increase fluids and fiber in diet lactulose 15-30ml daily as needed for constipation mag citrate, one half bottle tonight and 1/2 in am follow up if symptoms worsen consider seeking treatment for meth abuse Sepsis Event Note (ED) - Evaluation Sepsis Screening Result: No Definite Risk - Focused Exam Vital Signs: Vital Signs Temp Pulse Resp BP Pulse Ox 11/28/20 19:35 98.9 F 97 18 121/73 98 11/28/20 17:52 99.0 F 102 H 20 124/81 99
--- NOTE | 2020-11-28 19:10 | CR ---
PROCEDURE INFORMATION: Exam: XR Abdomen, 1 View Exam date and time: 11/28/2020 6:41 PM Age: 30 years old Clinical indication: Other: Constipation rlq pain, wbc 9,000 TECHNIQUE: Imaging protocol: XR of the abdomen. Views: Frontal supine view of the abdomen. 1 View. COMPARISON: CT Abdomen Pelvis w Cont 11/20/2020 4:02 PM FINDINGS: Gastrointestinal tract: A large amount of stool is noted throughout the colon. Small air-fluid levels are present consistent with mild ileus. Bones/joints: Unremarkable. IMPRESSION: 1. A large amount of stool is noted throughout the colon. 2. Small air-fluid levels are present consistent with mild ileus.
[2020-11-28] MEDS ORDERED: Ondansetron 4 MG/2 ML SDV IVPUSH ONE (19:15)
[2020-11-28] MEDS ORDERED: fentaNYL 100 MCG/2 ML SDV IVPUSH ONE (19:15)
[2020-11-28] MEDS ORDERED: Glucagon,Human Recombinant 1 MG Vial IM PRN (19:19)
[2020-11-28] MEDS ORDERED: Insulin Regular, Human 100 Units/ML 3 ML Vial IV ONE (19:19)
[2020-11-28] MEDS ORDERED: 50% Dextrose in Water 50 ML Syringe IV PRN (19:19)
[2020-11-28] MEDS ORDERED: fentaNYL 100 MCG/2 ML SDV IVPUSH PRN (19:23)
[2020-11-28 19:36] VITALS: BP 121/73; PULSE 97
[2020-11-28] MEDS ORDERED: Magnesium Citrate Solution 296 ML Bottle ONE (20:47)
== END 2020-11-28 21:00 | disposition home or self-care (01) ==
LOC: DL.ED 17:41
DX: K59.01 Slow transit constipation (principal); E10.65 Type 1 diabetes mellitus with hyperglycemia; F15.10 Other stimulant abuse, uncomplicated; I11.0 Hypertensive heart disease with heart failure; I50.9 Heart failure, unspecified; Z72.0 Tobacco use; Z79.899 Other long term (current) drug therapy
CPT/HCPCS: 36415; 74018; 80053; 80305-QW; 81001; 82150; 82962; 83605; 83690; 84703; 85025; 96374; 96375; 99283-25; A9270-GY; J1815-GY; J2405; J3010

== ENCOUNTER 2022-01-23 13:52 | Emergency (ER) | payer MEDICAID ==
[2022-01-23 14:17] VITALS: BP 165/132; PULSE 82
[2022-01-23 15:09] LABS: ACETAMINOPHEN 1 ug/mL (10-30 (Therapeutic)); ANION GAP 13.5 mEq/L (7-13); CHLORIDE,CL 100 mmol/L (98-107); ESTIMATED GFR > 60; SODIUM,NA 135 mmol/L (136-145)
[2022-01-23 15:13] LABS: AMPHETAMINES,URINE NEGATIVE (NEGATIVE); BARBITURATES,URINE NEGATIVE (NEGATIVE); BENZODIAZEPINE,URINE NEGATIVE (NEGATIVE); MDMA (ECSTASY), URINE NEGATIVE (NEGATIVE); METHADONE,URINE NEGATIVE (NEGATIVE); METHAMPHETAMINES,URINE POSITIVE (NEGATIVE); OPIATES,URINE NEGATIVE (NEGATIVE); OXYCODONE,URINE NEGATIVE (NEGATIVE); PHENCYCLIDINE,URINE NEGATIVE (NEGATIVE); TCA,URINE NEGATIVE (NEGATIVE)
[2022-01-23] MEDS: Sodium Chloride 0.9% 1,000 ML IV ONE (15:30)
[2022-01-23] MEDS: HYDROmorphone 0.5 MG/0.5 ML Syringe IVPUSH ONE (15:30)
[2022-01-23] MEDS: Ondansetron 4 MG/2 ML SDV ONE (15:39)
[2022-01-23] MEDS: Ondansetron 4 MG/2 ML SDV IVPUSH ONE (15:39)
[2022-01-23] MEDS: Iopamidol 612 MG/ML 100 ML Bottle IVPUSH ONE (15:45)
[2022-01-23 16:01] LABS: CORONAVIRUS COVID-19 NAA NEGATIVE (NEGATIVE)
[2022-01-23] MEDS: GI Cocktail Oral Solution 30 ML PO ONE (17:24)
== END 2022-01-23 17:38 | disposition home or self-care (01) ==
LOC: DL.ED 13:52
DX: R10.10 Upper abdominal pain, unspecified (principal); F15.10 Other stimulant abuse, uncomplicated; I11.0 Hypertensive heart disease with heart failure; I50.9 Heart failure, unspecified; E10.9 Type 1 diabetes mellitus without complications; Z86.16 Personal history of COVID-19; Z72.0 Tobacco use; Z20.822 Contact with and (suspected) exposure to COVID-19
CPT/HCPCS: 0240U; 36415; 74177; 80053; 80143; 80179; 80305; 80307; 81001; 81025; 82947; 83605; 83735; 85025; 96374; 96375; 99284; A9270; J1170; J2405; J7030; Q9967

== ENCOUNTER 2022-12-30 13:32 | Emergency (ER) | payer MEDICAID ==
[2022-12-30] MEDS ORDERED: Sodium Chloride 0.9% 10 ML Syringe FLUSH PRN (14:20)
[2022-12-30] MEDS ORDERED: Sodium Chloride 0.9% 1,000 ML IV ONE ×2 (14:44→15:51)
[2022-12-30 14:53] VITALS: BP 98/72; PULSE 138
[2022-12-30 15:05] LABS: CORONAVIRUS COVID-19 NAA NEGATIVE (NEGATIVE); RESPIRATORY SYNCYTIAL VIR NAA NEGATIVE (NEGATIVE)
[2022-12-30] MEDS ORDERED: Ondansetron 4 MG/2 ML SDV IVPUSH ONE (15:24)
[2022-12-30 15:39] LABS: ANION GAP 19.7 mEq/L (7-13); CHLORIDE,CL 88 mmol/L (98-107); SODIUM,NA 125 mmol/L (136-145)
[2022-12-30 15:46] LABS: AMPHETAMINES,URINE NEGATIVE (NEGATIVE); BARBITURATES,URINE NEGATIVE (NEGATIVE); BENZODIAZEPINE,URINE NEGATIVE (NEGATIVE); MDMA (ECSTASY), URINE NEGATIVE (NEGATIVE); METHADONE,URINE NEGATIVE (NEGATIVE); METHAMPHETAMINES,URINE POSITIVE (NEGATIVE); OPIATES,URINE NEGATIVE (NEGATIVE); OXYCODONE,URINE NEGATIVE (NEGATIVE); PHENCYCLIDINE,URINE NEGATIVE (NEGATIVE); TCA,URINE NEGATIVE (NEGATIVE)
[2022-12-30 15:48] LABS: ESTIMATED GFR 26 mL/min (>=60)
[2022-12-30] MEDS ORDERED: Potassium Chloride 20 MEQ in Premix Bag 1 BAG IV ONE (15:49)
[2022-12-30] MEDS ORDERED: Glucagon,Human Recombinant 1 MG Vial IM PRN (15:50)
[2022-12-30] MEDS ORDERED: 50% Dextrose in Water 50 ML Syringe IVPUSH PRN (15:50)
[2022-12-30] MEDS ORDERED: Insulin Regular, Human 100 Units/ML 3 ML Vial IV ONE (15:50)
[2022-12-30] MEDS ORDERED: NS + KCl 20mEq/L 1,000 ML IV SCH (16:00)
[2022-12-30] MEDS ORDERED: Magnesium Sulfate/Water 2 GM in Premix Bag 1 BAG IV ONE (16:24)
[2022-12-30 16:33] LABS: O2 DELIVERY DEVICE ROOM AIR
[2022-12-30] MEDS ORDERED: Azithromycin 250 MG Tab PO ONE (16:34)
[2022-12-30] MEDS ORDERED: metroNIDAZOLE 250 MG Tab PO ONE (16:34)
[2022-12-30] MEDS ORDERED: cefTRIAXone 500 MG Vial IM ONE (16:34)
[2022-12-30 16:35] LABS: ALLEN TEST POSITIVE
[2022-12-30 16:36] LABS: BASE EXCESS ARTERIAL -2 mmol/L ((-2)-(+3)); BICARBONATE,ARTERIAL 21.9 mmol/L (22-26); O2 SATURATION ARTERIAL 97 % (95-100); PCO2 ARTERIAL 32 mmHg (35-45); PO2 ARTERIAL 82 mmHg (70-100)
[2022-12-30 16:41] LABS: PTT,PARTIAL THROMBOPLSTIN TIME 22.4 SEC (22.0-34.0)
[2022-12-30 16:42] LABS: HEMOGLOBIN A1C 9.3 % (<5.7)
[2022-12-30] MEDS ORDERED: LORazepam 0.5 MG Tab PO ONE (18:02)
[2023-01-02 12:47] LABS: C.TRACHOMATIS BY TMA Negative (Negative); N.GONORRHOEAE BY TMA Negative (Negative)
== END 2022-12-30 18:20 ==
LOC: DL.ED 13:32
DX: A41.9 Sepsis, unspecified organism (principal); E87.6 Hypokalemia; E87.1 Hypo-osmolality and hyponatremia; I11.0 Hypertensive heart disease with heart failure; I50.9 Heart failure, unspecified; E10.65 Type 1 diabetes mellitus with hyperglycemia; E10.10 Type 1 diabetes mellitus with ketoacidosis without coma; E80.6 Other disorders of bilirubin metabolism; E83.42 Hypomagnesemia; E87.8 Other disorders of electrolyte and fluid balance, not elsewhere classified; Z79.899 Other long term (current) drug therapy; Z86.16 Personal history of COVID-19; Z20.822 Contact with and (suspected) exposure to COVID-19
CPT/HCPCS: 0241U; 36415; 36600; 71045; 80053; 80305; 80307; 81001; 82009; 82150; 82803; 82947; 83036; 83605; 83690; 83735; 83880; 84100; 84145; 84484; 85025; 85610; 85730; 86140; 87040; 87086; 87088; 87186; 87491; 87563; 87591; 93005; 93010; 96361; 96365; 96366; 96368; 96372; 96375; 99285; A9270; J0696; J2405; J3475; J3480; J3490; J7030

== ENCOUNTER 2023-07-11 16:51 | Inpatient (IN) | payer MEDICAID ==
[2023-07-11] MEDS ORDERED: Sodium Chloride 0.9% 1,000 ML IV ONE ×2 (16:58→18:08)
[2023-07-11 17:06] LABS: O2 DELIVERY DEVICE ROOM AIR
[2023-07-11 17:12] LABS: BASOPHILS PERCENT AUTO 0.1 % (0.0-1.0); EOSINOPHILS PERCENT AUTO 0.3 % (1.0-3.0); HEMATOCRIT 33.3 % (37.0-47.0); HEMOGLOBIN 10.8 g/dL (12.0-16.0); LYMPHOCYTES PERCENT AUTO 5.2 % (20.5-50.1); MEAN CORPUSCULAR HEMOGLOBIN 25.3 pg (27.0-34.0); MEAN CORPUSCULAR HGB CONC 32.4 g/dL (33.0-35.0); MONOCYTES PERCENT AUTO 3.8 % (2-8); NEUTROPHILS PERCENT AUTO 90.6 % (42.2-75.2); PLATELET COUNT,PLT 520 10^3/uL (150-450); RED BLOOD CELL COUNT 4.27 10^6/uL (4.2-5.4); WHITE BLOOD CELL COUNT,WBC 26.1 10^3/uL (5.0-10.0)
[2023-07-11 17:29] LABS: KETONES,BLOOD NEGATIVE
[2023-07-11 17:39] LABS: ALANINE AMINOTRANSFERASE,ALT 22 U/L (14-59); ALBUMIN 2.6 g/dL (3.4-5.0); ALKALINE PHOSPHATASE 159 U/L (46-116); ANION GAP 14.5 mEq/L (7-13); ASPARTATE AMNIOTRANSFERASE,AST 12 U/L (15-37); BILIRUBIN TOTAL 1.1 mg/dL (0.2-1.0); BLOOD UREA NITROGEN,BUN 26 mg/dL (7-18); BUN/CREATININE RATIO 14.6 (No establ ref range); CALCIUM 8.1 mg/dL (8.5-10.1); CARBON DIOXIDE,CO2 23 mmol/L (21-32); CHLORIDE,CL 89 mmol/L (98-107); CREATININE 1.78 mg/dL (0.55-1.02); EST CRCL DRUG DOSING (CG) 34.89 mL/min; MAGNESIUM 2.1 mg/dL (1.8-2.4); POTASSIUM,K 4.5 mmol/L (3.5-5.1); PROTEIN TOTAL,TP 7.9 g/dL (6.4-8.2); SODIUM,NA 122 mmol/L (136-145)
[2023-07-11 17:41] LABS: BASE EXCESS VENOUS -6.6 mmol/l ((-2)-(+3)); BICARBONATE,VENOUS 18 mmol/l (19-25); O2 SATURATION VENOUS 76.1 % (60-80); PCO2 VENOUS 37 mmHg (41-51); PH,VENOUS 7.32 (7.31-7.41); PO2 VENOUS 41 mmHg (35-42)
[2023-07-11 17:42] LABS: A/G RATIO 0.49; ESTIMATED GFR 38 mL/min (>=60); GLUCOSE RANDOM 549 mg/dL (70-99); LACTIC ACID 2.5 mmol/L (0.4-2.0)
[2023-07-11 17:43] LABS: ETHANOL BLOOD MEDICAL < 3 mg/dL (0)
[2023-07-11 17:51] LABS: APPEARANCE,URINE CLEAR (CLEAR); BILIRUBIN,URINE NEGATIVE (NEGATIVE); COLOR,URINE YELLOW (YELLOW); GLUCOSE,URINE 500 (NEGATIVE); KETONES,URINE NEGATIVE (NEGATIVE); LEUKOCYTE ESTERASE,URINE NEGATIVE (NEGATIVE); NITRITE,URINE NEGATIVE (NEGATIVE); OCCULT BLOOD,URINE LARGE (NEGATIVE); PROTEIN,URINE 100 (NEGATIVE); UROBILINOGEN,URINE 0.2 mg/dL (0.2-1.0)
[2023-07-11] MEDS: Sodium Chloride 0.9% 10 ML Syringe FLUSH PRN (17:52)
[2023-07-11 17:53] LABS: METHAMPHETAMINES,URINE NEGATIVE (NEGATIVE)
[2023-07-11 17:54] LABS: C-REACTIVE PROTEIN 33.8 mg/dL (0.0-0.9)
[2023-07-11 17:54] LABS: AMPHETAMINES,URINE NEGATIVE (NEGATIVE); BARBITURATES,URINE NEGATIVE (NEGATIVE); BENZODIAZEPINE,URINE NEGATIVE (NEGATIVE); MDMA (ECSTASY), URINE NEGATIVE (NEGATIVE); METHADONE,URINE NEGATIVE (NEGATIVE); OPIATES,URINE NEGATIVE (NEGATIVE); OXYCODONE,URINE NEGATIVE (NEGATIVE); PHENCYCLIDINE,URINE NEGATIVE (NEGATIVE); TCA,URINE NEGATIVE (NEGATIVE)
[2023-07-11 18:21] LABS: BACTERIA,URINE FEW /HPF (0-FEW/HPF); EPITHELIAL CELLS,URINE RARE /HPF (NOT SEEN); RBC,URINE SEMI-PACKED /HPF (0-5)
[2023-07-11] MEDS ORDERED: Acetaminophen 325 MG Tab PO ONE (18:49)
[2023-07-11] MEDS ORDERED: Lidocaine 1% 5 ML VIAL ONE (20:09)
[2023-07-11] MEDS: HYDROmorphone 2 MG/ML Syringe ONE (20:15)
[2023-07-11] MEDS ORDERED: HYDROmorphone 1 MG/ML Syringe IVPUSH ONE (21:07)
[2023-07-11] MEDS ORDERED: HYDROmorphone 1 MG/ML Syringe ONE (21:10)
[2023-07-11] MEDS ORDERED: Magnesium Hydroxide 400 MG/5 ML Susp 30 ML Cup PO PRN (21:24)
[2023-07-11] MEDS ORDERED: Sennosides/Docusate Sodium 50-8.6 MG Tab PO PRN (21:24)
[2023-07-11] MEDS ORDERED: Polyethylene Glycol 3350 Powder 17 GM Packet PO PRN (21:24)
[2023-07-11] MEDS ORDERED: Ondansetron 4 MG/2 ML SDV IVPUSH PRN (21:24)
[2023-07-11] MEDS ORDERED: Acetaminophen 325 MG Tab PO PRN (21:24)
[2023-07-11] MEDS ORDERED: HYDROmorphone 0.5 MG/0.5 ML Syringe IVPUSH PRN (21:24)
[2023-07-11] MEDS ORDERED: Naloxone 2 MG/2 ML Syringe IVPUSH PRN (21:24)
[2023-07-11] MEDS ORDERED: Albuterol/Ipratropium 3.0-0.5 MG/3 ML Neb Soln NEB PRN (21:24)
[2023-07-11] MEDS ORDERED: Metoprolol Tartrate 5 MG/5 ML SDV IVPUSH PRN (21:33)
[2023-07-11] MEDS ORDERED: Melatonin 3 MG Tab PO PRN (21:33)
[2023-07-11] MEDS ORDERED: Glucagon,Human Recombinant 1 MG Vial IM PRN (21:51)
[2023-07-11] MEDS ORDERED: 50% Dextrose in Water 50 ML Syringe IVPUSH PRN (21:51)
[2023-07-11 22:01] LABS: HEMOGLOBIN A1C 10.2 % (<5.7)
[2023-07-11 22:12] LABS: LACTIC ACID 1.1 mmol/L (0.4-2.0)
[2023-07-11] MEDS: Lactated Ringers 1,000 ML IV SCH (22:58)
[2023-07-11] MEDS: hydrOXYzine HCl 25 MG Tab PO SCH (22:59)
[2023-07-11] MEDS: Bacitracin/Neomycin/Polymyxin B Oint 28.4 GM Tube TOP SCH (22:59)
[2023-07-11] MEDS: Piperacillin/Tazobactam 3.375 GM in Sodium Chloride 0.9% 100 ML IV SCH (23:06)
[2023-07-11] MEDS: QUEtiapine 100 MG Tab PO SCH (23:06)
[2023-07-12] MEDS: Insulin Lispro 100 Units/ML 3 ML Vial SUBCUT SCH ×4 (00:04→17:26)
[2023-07-12] MEDS: HYDROmorphone 2 MG/ML Syringe ONE (03:25)
[2023-07-12] MEDS: Piperacillin/Tazobactam 3.375 GM in Sodium Chloride 0.9% 100 ML IV SCH ×3 (05:57→17:28)
[2023-07-12] MEDS: hydrOXYzine HCl 25 MG Tab PO SCH ×3 (05:59→21:37)
[2023-07-12 07:04] LABS: BASOPHILS PERCENT AUTO 0.1 % (0.0-1.0); EOSINOPHILS PERCENT AUTO 0.5 % (1.0-3.0); HEMATOCRIT 28.9 % (37.0-47.0); HEMOGLOBIN 9.2 g/dL (12.0-16.0); LYMPHOCYTES PERCENT AUTO 6.7 % (20.5-50.1); MEAN CORPUSCULAR HEMOGLOBIN 25.1 pg (27.0-34.0); MEAN CORPUSCULAR HGB CONC 31.8 g/dL (33.0-35.0); MEAN CORPUSCULAR VOLUME 78.7 fL (80-100); MONOCYTES PERCENT AUTO 5.6 % (2-8); NEUTROPHILS PERCENT AUTO 87.1 % (42.2-75.2); PLATELET COUNT,PLT 331 10^3/uL (150-450); RED BLOOD CELL COUNT 3.67 10^6/uL (4.2-5.4); WHITE BLOOD CELL COUNT,WBC 21.2 10^3/uL (5.0-10.0)
[2023-07-12 08:18] LABS: ALBUMIN 1.5 g/dL (3.4-5.0); ANION GAP 14.1 mEq/L (7-13); BILIRUBIN TOTAL 0.5 mg/dL (0.2-1.0); BUN/CREATININE RATIO 15.3 (No establ ref range); CALCIUM 7.3 mg/dL (8.5-10.1); CREATININE 1.11 mg/dL (0.55-1.02); EST CRCL DRUG DOSING (CG) 52.48 mL/min; MAGNESIUM 1.9 mg/dL (1.8-2.4); POTASSIUM,K 4.1 mmol/L (3.5-5.1); PROTEIN TOTAL,TP 5.4 g/dL (6.4-8.2)
[2023-07-12 08:30] LABS: A/G RATIO 0.38; C-REACTIVE PROTEIN 19.5 mg/dL (0.0-0.9)
[2023-07-12] MEDS: Enoxaparin 40 MG/0.4 ML Syringe SUBCUT SCH (09:34)
[2023-07-12] MEDS: Bacitracin/Neomycin/Polymyxin B Oint 28.4 GM Tube TOP SCH ×2 (09:34→21:38)
[2023-07-12] MEDS: Sodium Chloride 0.9% 10 ML Syringe FLUSH PRN ×3 (12:06→17:29)
[2023-07-12] MEDS: Lactated Ringers 1,000 ML IV SCH (12:12)
[2023-07-12] MEDS: Acetaminophen/oxyCODONE 325-5 MG Tab PO PRN ×2 (16:10→22:29)
[2023-07-12] MEDS ORDERED: QUEtiapine 100 MG Tab PO SCH (21:00)
[2023-07-12] MEDS: Insulin Glarg,Human.Rec.Analog 100 Unit/ML 10 ML Vial SUBCUT SCH (21:31)
[2023-07-12] MEDS: QUEtiapine 100 MG Tab PO SCH (21:37)
[2023-07-12] MEDS ORDERED: Piperacillin/Tazobactam 3.375 GM in Sodium Chloride 0.9% 100 ML IV SCH (22:00)
[2023-07-13] MEDS: Piperacillin/Tazobactam 3.375 GM in Sodium Chloride 0.9% 100 ML IV SCH ×5 (00:18→23:18)
[2023-07-13] MEDS: hydrOXYzine HCl 25 MG Tab PO SCH ×3 (05:54→21:47)
[2023-07-13 06:28] LABS: BASOPHILS PERCENT AUTO 0.1 % (0.0-1.0); EOSINOPHILS PERCENT AUTO 1.3 % (1.0-3.0); HEMATOCRIT 27.8 % (37.0-47.0); HEMOGLOBIN 9.1 g/dL (12.0-16.0); LYMPHOCYTES PERCENT AUTO 9.4 % (20.5-50.1); MEAN CORPUSCULAR HEMOGLOBIN 25.5 pg (27.0-34.0); MEAN CORPUSCULAR HGB CONC 32.7 g/dL (33.0-35.0); MEAN CORPUSCULAR VOLUME 77.9 fL (80-100); MONOCYTES PERCENT AUTO 5.6 % (2-8); NEUTROPHILS PERCENT AUTO 83.6 % (42.2-75.2); PLATELET COUNT,PLT 523 10^3/uL (150-450); RED BLOOD CELL COUNT 3.57 10^6/uL (4.2-5.4); WHITE BLOOD CELL COUNT,WBC 14.3 10^3/uL (5.0-10.0)
[2023-07-13 06:47] LABS: ALBUMIN 1.5 g/dL (3.4-5.0); BILIRUBIN TOTAL 0.3 mg/dL (0.2-1.0); BUN/CREATININE RATIO 11.6 (No establ ref range); CALCIUM 7.6 mg/dL (8.5-10.1); CREATININE 0.95 mg/dL (0.55-1.02); EST CRCL DRUG DOSING (CG) 61.32 mL/min; MAGNESIUM 1.9 mg/dL (1.8-2.4); PROTEIN TOTAL,TP 5.6 g/dL (6.4-8.2)
[2023-07-13 06:50] LABS: HEMOGLOBIN A1C 9.9 % (<5.7)
[2023-07-13 06:54] LABS: A/G RATIO 0.37; C-REACTIVE PROTEIN 17.6 mg/dL (0.0-0.9)
[2023-07-13] MEDS: Acetaminophen/oxyCODONE 325-5 MG Tab PO PRN ×3 (08:07→20:16)
[2023-07-13] MEDS: Insulin Lispro 100 Units/ML 3 ML Vial SUBCUT SCH ×5 (08:17→17:06)
[2023-07-13] MEDS: Enoxaparin 40 MG/0.4 ML Syringe SUBCUT SCH (09:21)
[2023-07-13] MEDS: Bacitracin/Neomycin/Polymyxin B Oint 28.4 GM Tube TOP SCH ×2 (09:23→21:49)
[2023-07-13] MEDS ORDERED: Glucagon,Human Recombinant 1 MG Vial IM PRN (10:05)
[2023-07-13] MEDS ORDERED: 50% Dextrose in Water 50 ML Syringe IVPUSH PRN (10:05)
[2023-07-13] MEDS: Ferrous Sulfate 325 MG Tab PO SCH (17:12)
[2023-07-13] MEDS ORDERED: Bacitracin Oint 1 GM U/D Packet TOP SCH (21:00)
[2023-07-13] MEDS: Insulin Glarg,Human.Rec.Analog 100 Unit/ML 10 ML Vial SUBCUT SCH (21:45)
[2023-07-13] MEDS: QUEtiapine 100 MG Tab PO SCH (21:47)
[2023-07-13] MEDS: hydrALAZINE 20 MG/ML SDV IVPUSH PRN (21:48)
[2023-07-13] MEDS: Sodium Chloride 0.9% 10 ML Syringe FLUSH PRN (23:17)
[2023-07-14] MEDS: Sodium Chloride 0.9% 10 ML Syringe FLUSH PRN ×2 (00:18→05:44)
[2023-07-14] MEDS: Piperacillin/Tazobactam 3.375 GM in Sodium Chloride 0.9% 100 ML IV SCH ×2 (05:45→12:09)
[2023-07-14] MEDS: Acetaminophen/oxyCODONE 325-5 MG Tab PO PRN ×2 (05:51→12:06)
[2023-07-14] MEDS: hydrOXYzine HCl 25 MG Tab PO SCH (05:55)
[2023-07-14 06:30] LABS: HEMATOCRIT 29.3 % (37.0-47.0); HEMOGLOBIN 9.4 g/dL (12.0-16.0); MEAN CORPUSCULAR HEMOGLOBIN 24.8 pg (27.0-34.0); MEAN CORPUSCULAR HGB CONC 32.1 g/dL (33.0-35.0); MEAN CORPUSCULAR VOLUME 77.3 fL (80-100); PLATELET COUNT,PLT 564 10^3/uL (150-450); RED BLOOD CELL COUNT 3.79 10^6/uL (4.2-5.4); WHITE BLOOD CELL COUNT,WBC 11.8 10^3/uL (5.0-10.0)
[2023-07-14 06:47] LABS: BASOPHILS PERCENT AUTO 0.2 % (0.0-1.0); EOSINOPHILS PERCENT AUTO 1.7 % (1.0-3.0); LYMPHOCYTES PERCENT AUTO 14.8 % (20.5-50.1); MONOCYTES PERCENT AUTO 6.3 % (2-8)
[2023-07-14 06:54] LABS: ALBUMIN 1.6 g/dL (3.4-5.0); ANION GAP 11.9 mEq/L (7-13); BILIRUBIN TOTAL 0.3 mg/dL (0.2-1.0); BUN/CREATININE RATIO 10.9 (No establ ref range); C-REACTIVE PROTEIN 11.1 mg/dL (0.0-0.9); CALCIUM 8.2 mg/dL (8.5-10.1); CREATININE 0.92 mg/dL (0.55-1.02); EST CRCL DRUG DOSING (CG) 63.32 mL/min; MAGNESIUM 1.6 mg/dL (1.8-2.4); POTASSIUM,K 3.9 mmol/L (3.5-5.1); PROTEIN TOTAL,TP 6.3 g/dL (6.4-8.2)
[2023-07-14 06:59] LABS: LYMPHOCYTES PERCENT MAN 11 % (20-50); MONOCYTES PERCENT MAN 3 % (2-8); SEG NEUTROPHILS PERCENT MAN 86 % (42-75)
[2023-07-14 07:03] LABS: A/G RATIO 0.34
[2023-07-14] MEDS ORDERED: Magnesium Sulfate/Water 2 GM in Premix Bag 1 BAG IV ONE (07:57)
[2023-07-14] MEDS ORDERED: Bacitracin/Neomycin/Polymyxin B Oint 28.4 GM Tube TOP SCH (08:02)
[2023-07-14] MEDS: Insulin Lispro 100 Units/ML 3 ML Vial SUBCUT SCH ×4 (08:36→12:08)
[2023-07-14] MEDS: Ferrous Sulfate 325 MG Tab PO SCH (08:36)
[2023-07-14] MEDS: Enoxaparin 40 MG/0.4 ML Syringe SUBCUT SCH (08:37)
[2023-07-14] MEDS ORDERED: Take Home: Sulfamethoxazole/Trimethoprim 800-160 MG Tab, 6 Tab Pack PO ONE (11:57)
[2023-07-14] MEDS ORDERED: Take Home: traMADol 50 MG, 4 Tab Pack PO ONE (12:06)
[2023-07-14 12:24] VITALS: BP 158/95; PULSE 83
[2023-07-14] MEDS: hydrALAZINE 20 MG/ML SDV IVPUSH PRN (13:01)
[2023-07-17 19:47] LABS: C.TRACHOMATIS BY TMA Negative (Negative); M GENITALIUM Negative (Negative); M GENITALIUM SOURCE Urine; N.GONORRHOEAE BY TMA Negative (Negative); SOURCE Urine
== END 2023-07-14 14:00 | disposition home or self-care (01) | DRG 872 ==
LOC: DL.ED 16:51 → DL.MS 19:25 → UNDOADMIN 19:36
PROVIDERS: ADMIT Internal Medicine; ATTEND Internal Medicine
PROC: 02HV33Z Insertion of Infusion Device into Superior Vena Cava, Percutaneous Approach (ICD-10-PCS; principal; 2023-07-11)
DX: A41.9 Sepsis, unspecified organism (principal); L03.116 Cellulitis of left lower limb; E87.1 Hypo-osmolality and hyponatremia; N17.9 Acute kidney failure, unspecified; L03.114 Cellulitis of left upper limb; E72.51 Non-ketotic hyperglycinemia; E44.0 Moderate protein-calorie malnutrition; D50.9 Iron deficiency anemia, unspecified; E78.5 Hyperlipidemia, unspecified; F41.9 Anxiety disorder, unspecified; F32.A Depression, unspecified; G89.29 Other chronic pain; R65.20 Severe sepsis without septic shock; E11.628 Type 2 diabetes mellitus with other skin complications; D75.839 Thrombocytosis, unspecified; E87.8 Other disorders of electrolyte and fluid balance, not elsewhere classified; F17.210 Nicotine dependence, cigarettes, uncomplicated; I11.0 Hypertensive heart disease with heart failure; E55.9 Vitamin D deficiency, unspecified; E10.69 Type 1 diabetes mellitus with other specified complication; E11.65 Type 2 diabetes mellitus with hyperglycemia; Z79.4 Long term (current) use of insulin; Z79.899 Other long term (current) drug therapy; Z98.51 Tubal ligation status; Z98.890 Other specified postprocedural states; Z83.3 Family history of diabetes mellitus; Z56.0 Unemployment, unspecified
CPT/HCPCS: 36415; 71045; 80053; 80202; 80305-QW; 80307; 81001; 81025; 82009; 82803; 82947; 83036; 83605; 83735; 84145; 84484; 85025; 86140; 87040; 87070; 87077; 87186; 87491; 87563; 87591; 93005; 96361; 96365; 99285-25; A9270-GY; C1751; J0360; J1170; J1650; J1815-GY; J2543; J3370; J3475; J3490; J7030; J7050; J7120

== ENCOUNTER 2023-10-13 14:33 | Emergency (ER) | payer MEDICAID ==
[2023-10-13] MEDS ORDERED: Ondansetron 4 MG/2 ML SDV IV ONE (14:47)
[2023-10-13] MEDS ORDERED: Sodium Chloride 0.9% 1,000 ML IV ONE (14:47)
[2023-10-13] MEDS ORDERED: Sodium Chloride 0.9% 10 ML Syringe FLUSH PRN (14:49)
[2023-10-13 15:00] VITALS: BP 185/123; PULSE 93
[2023-10-13] MEDS ORDERED: Labetalol 20 MG/4 ML Syringe IVPUSH ONE (15:10)
[2023-10-13] MEDS ORDERED: Promethazine 25 MG/ML SDV IM ONE (15:11)
[2023-10-13] MEDS ORDERED: HYDROmorphone 1 MG/ML Syringe IVPUSH ONE (15:12)
[2023-10-13] MEDS: Famotidine 20 MG/2 ML SDV IVPUSH ONE ×2 (15:15→15:38)
[2023-10-13 15:41] LABS: BASOPHILS PERCENT AUTO 0.4 % (0.0-1.0); EOSINOPHILS PERCENT AUTO 1.4 % (1.0-3.0); HEMATOCRIT 36.4 % (37.0-47.0); HEMOGLOBIN 11.9 g/dL (12.0-16.0); LYMPHOCYTES PERCENT AUTO 6.3 % (20.5-50.1); MEAN CORPUSCULAR HEMOGLOBIN 25.1 pg (27.0-34.0); MEAN CORPUSCULAR HGB CONC 32.7 g/dL (33.0-35.0); MEAN CORPUSCULAR VOLUME 76.8 fL (80-100); MONOCYTES PERCENT AUTO 5.5 % (2-8); NEUTROPHILS PERCENT AUTO 86.4 % (42.2-75.2); PLATELET COUNT,PLT 313 10^3/uL (150-450); RED BLOOD CELL COUNT 4.74 10^6/uL (4.2-5.4); WHITE BLOOD CELL COUNT,WBC 10.1 10^3/uL (5.0-10.0)
[2023-10-13 15:43] LABS: BASE EXCESS VENOUS 1.6 mmol/l ((-2)-(+3)); BICARBONATE,VENOUS 27 mmol/l (19-25); O2 DELIVERY DEVICE ROOM AIR; O2 SATURATION VENOUS 56.6 % (60-80); PCO2 VENOUS 49 mmHg (41-51); PH,VENOUS 7.36 (7.31-7.41); PO2 VENOUS 33 mmHg (35-42)
[2023-10-13 15:55] LABS: APPEARANCE,URINE CLEAR (CLEAR); BILIRUBIN,URINE NEGATIVE (NEGATIVE); COLOR,URINE YELLOW (YELLOW); GLUCOSE,URINE 500 (NEGATIVE); KETONES,URINE 15 (NEGATIVE); LEUKOCYTE ESTERASE,URINE TRACE (NEGATIVE); NITRITE,URINE NEGATIVE (NEGATIVE); OCCULT BLOOD,URINE MODERATE (NEGATIVE); PH,URINE 6.5 (5.0-9.0); PROTEIN,URINE >=300 (NEGATIVE); UROBILINOGEN,URINE 0.2 mg/dL (0.2-1.0)
[2023-10-13 15:59] LABS: AMPHETAMINES,URINE NEGATIVE (NEGATIVE); BARBITURATES,URINE NEGATIVE (NEGATIVE); BENZODIAZEPINE,URINE NEGATIVE (NEGATIVE); MDMA (ECSTASY), URINE NEGATIVE (NEGATIVE); METHADONE,URINE NEGATIVE (NEGATIVE); METHAMPHETAMINES,URINE POSITIVE (NEGATIVE); OPIATES,URINE NEGATIVE (NEGATIVE); OXYCODONE,URINE NEGATIVE (NEGATIVE); PHENCYCLIDINE,URINE NEGATIVE (NEGATIVE); TCA,URINE NEGATIVE (NEGATIVE)
[2023-10-13 16:11] LABS: ALANINE AMINOTRANSFERASE,ALT 29 U/L (14-59); ALKALINE PHOSPHATASE 147 U/L (46-116); AMYLASE 28 U/L (25-115); ASPARTATE AMNIOTRANSFERASE,AST 29 U/L (15-37); BLOOD UREA NITROGEN,BUN 22 mg/dL (7-18); BUN/CREATININE RATIO 15.3 (No establ ref range); CALCIUM 8.5 mg/dL (8.5-10.1); CARBON DIOXIDE,CO2 27 mmol/L (21-32); CHLORIDE,CL 95 mmol/L (98-107); CREATININE 1.44 mg/dL (0.55-1.02); GLUCOSE RANDOM 303 mg/dL (70-99); LIPASE 9 U/L (16-77); PROTEIN TOTAL,TP 7.7 g/dL (6.4-8.2); SODIUM,NA 130 mmol/L (136-145)
[2023-10-13 16:12] LABS: A/G RATIO 0.64; ESTIMATED GFR 49 mL/min (>=60); ETHANOL BLOOD MEDICAL < 3 mg/dL (0); LACTIC ACID 1.5 mmol/L (0.4-2.0)
[2023-10-13 16:15] LABS: KETONES,BLOOD NEGATIVE
[2023-10-13] MEDS ORDERED: Take Home: Ondansetron 4 MG Tab.DIS, 5 Tab Pack PO ONE (17:08)
[2023-10-13 18:13] LABS: AMORPHOUS SEDIMENT,URINE FEW /HPF (NOT SEEN); BACTERIA,URINE FEW /HPF (0-FEW/HPF); EPITHELIAL CELLS,URINE FEW /HPF (NOT SEEN); MUCUS,URINE FEW /LPF (NOT SEEN); RBC,URINE 0-5 /HPF (0-5)
== END 2023-10-13 17:37 | disposition home or self-care (01) ==
LOC: DL.ED 14:33
DX: K52.9 Noninfective gastroenteritis and colitis, unspecified (principal); E86.0 Dehydration; E87.1 Hypo-osmolality and hyponatremia; F15.10 Other stimulant abuse, uncomplicated; E10.9 Type 1 diabetes mellitus without complications; I11.0 Hypertensive heart disease with heart failure; I50.9 Heart failure, unspecified; Z86.16 Personal history of COVID-19; Z79.899 Other long term (current) drug therapy; Z79.4 Long term (current) use of insulin
CPT/HCPCS: 36415; 80053; 80305-QW; 80307; 81001; 81025; 82009; 82150; 82803; 82947; 83605; 83690; 83735; 83880; 84145; 84484; 85025; 87040; 87086; 87088; 93005; 93010; 96361; 96372; 96374; 96375; 99284; 99284-25; J1170; J2405; J2550; J3490; J7030

== ENCOUNTER 2024-07-29 20:53 | Emergency (ER) | payer MEDICAID, OTHER ==
[2024-07-29 21:24] VITALS: BP 114/72; PULSE 122
[2024-07-29 21:40] LABS: APPEARANCE,URINE CLEAR (CLEAR); BILIRUBIN,URINE NEGATIVE (NEGATIVE); COLOR,URINE YELLOW (YELLOW); GLUCOSE,URINE 500 (NEGATIVE); KETONES,URINE NEGATIVE (NEGATIVE); LEUKOCYTE ESTERASE,URINE NEGATIVE (NEGATIVE); NITRITE,URINE NEGATIVE (NEGATIVE); OCCULT BLOOD,URINE TRACE-INTACT (NEGATIVE); PH,URINE 7.5 (5.0-9.0); PROTEIN,URINE >=300 (NEGATIVE); UROBILINOGEN,URINE 0.2 mg/dL (0.2-1.0)
[2024-07-29 21:50] LABS: AMPHETAMINES,URINE POSITIVE (NEGATIVE); BARBITURATES,URINE NEGATIVE (NEGATIVE); BENZODIAZEPINE,URINE NEGATIVE (NEGATIVE); MDMA (ECSTASY), URINE NEGATIVE (NEGATIVE); METHADONE,URINE NEGATIVE (NEGATIVE); METHAMPHETAMINES,URINE POSITIVE (NEGATIVE); OPIATES,URINE NEGATIVE (NEGATIVE); OXYCODONE,URINE NEGATIVE (NEGATIVE); PHENCYCLIDINE,URINE NEGATIVE (NEGATIVE); TCA,URINE NEGATIVE (NEGATIVE)
[2024-07-29 22:00] LABS: AMORPHOUS SEDIMENT,URINE MODERATE /HPF (NOT SEEN); BACTERIA,URINE FEW /HPF (0-FEW/HPF); EPITHELIAL CELLS,URINE FEW /HPF (NOT SEEN); MUCUS,URINE FEW /LPF (NOT SEEN); RBC,URINE 0-5 /HPF (0-5)
[2024-07-29 22:19] LABS: BASOPHILS PERCENT AUTO 0.5 % (0.0-1.0); EOSINOPHILS PERCENT AUTO 1.5 % (1.0-3.0); HEMATOCRIT 35.7 % (37.0-47.0); HEMOGLOBIN 11.9 g/dL (12.0-16.0); LYMPHOCYTES PERCENT AUTO 39.5 % (20.5-50.1); MEAN CORPUSCULAR HEMOGLOBIN 26.2 pg (27.0-34.0); MEAN CORPUSCULAR HGB CONC 33.3 g/dL (33.0-35.0); MEAN CORPUSCULAR VOLUME 78.5 fL (80-100); MONOCYTES PERCENT AUTO 3.4 % (2-8); NEUTROPHILS PERCENT AUTO 55.1 % (42.2-75.2); PLATELET COUNT,PLT 424 10^3/uL (150-450); RED BLOOD CELL COUNT 4.55 10^6/uL (4.2-5.4); WHITE BLOOD CELL COUNT,WBC 6.2 10^3/uL (5.0-10.0)
[2024-07-29 22:43] LABS: HCG QUALITATIVE,SERUM NEGATIVE (NEGATIVE)
[2024-07-29 22:45] LABS: ALANINE AMINOTRANSFERASE,ALT 24 U/L (14-59); ALBUMIN 2.9 g/dL (3.4-5.0); ALKALINE PHOSPHATASE 142 U/L (46-116); ANION GAP 11.8 mEq/L (7-13); ASPARTATE AMNIOTRANSFERASE,AST 21 U/L (15-37); BILIRUBIN TOTAL 0.5 mg/dL (0.2-1.0); BLOOD UREA NITROGEN,BUN 26 mg/dL (7-18); BUN/CREATININE RATIO 17.3 (No establ ref range); CALCIUM 8.2 mg/dL (8.5-10.1); CARBON DIOXIDE,CO2 24 mmol/L (21-32); CHLORIDE,CL 104 mmol/L (98-107); ETHANOL BLOOD MEDICAL 280 mg/dL (0); LIPASE 22 U/L (16-77); MAGNESIUM 2.6 mg/dL (1.8-2.4); POTASSIUM,K 3.8 mmol/L (3.5-5.1); PROTEIN TOTAL,TP 7.2 g/dL (6.4-8.2); SODIUM,NA 136 mmol/L (136-145); TSH ULTRASENSITIVE 0.55 uIU/mL (0.36-3.74)
[2024-07-29 22:49] LABS: A/G RATIO 0.67; ESTIMATED GFR 46 mL/min (>=60); GLUCOSE RANDOM 409 mg/dL (70-99)
[2024-07-29] MEDS ORDERED: Glucagon,Human Recombinant 1 MG Vial IM PRN (22:51)
[2024-07-29] MEDS ORDERED: 50% Dextrose in Water 50 ML Syringe IVPUSH PRN (22:51)
[2024-07-29] MEDS: Insulin Lispro 100 Units/ML 3 ML Vial SUBCUT ONE (23:17)
== END 2024-07-29 23:16 ==
LOC: DL.ED 20:53
DX: R45.851 Suicidal ideations (principal); F15.10 Other stimulant abuse, uncomplicated; F10.10 Alcohol abuse, uncomplicated; I10 Essential (primary) hypertension; E10.40 Type 1 diabetes mellitus with diabetic neuropathy, unspecified; Z86.16 Personal history of COVID-19; Z79.899 Other long term (current) drug therapy; Z79.4 Long term (current) use of insulin
CPT/HCPCS: 36415; 80053; 80143; 80179; 80305-QW; 80307; 81001; 83690; 83735; 84443; 84703; 85025; 99285; J1815-GY

== ENCOUNTER 2025-10-15 15:15 | Emergency (ER) | payer SELFPAY ==
[2025-10-15 15:15] LABS: BASOPHILS PERCENT AUTO 0.4 % (0.0-1.0); EOSINOPHILS PERCENT AUTO 1.9 % (1.0-3.0); LYMPHOCYTES PERCENT AUTO 21.9 % (20.5-50.1); MONOCYTES PERCENT AUTO 5.9 % (2-8); NEUTROPHILS PERCENT AUTO 69.9 % (42.2-75.2); PLATELET COUNT,PLT 434 10^3/uL (150-450); RED BLOOD CELL COUNT 4.07 10^6/uL (4.2-5.4); WHITE BLOOD CELL COUNT,WBC 6.8 10^3/uL (5.0-10.0)
[2025-10-15 15:40] LABS: LACTIC ACID 1.2 mmol/L (0.4-2.0)
[2025-10-15 15:43] LABS: ALANINE AMINOTRANSFERASE,ALT 26.0 U/L (14-59); ASPARTATE AMNIOTRANSFERASE,AST 18.0 U/L (15-37); BILIRUBIN TOTAL 0.8 mg/dL (0.2-1.0); BLOOD UREA NITROGEN,BUN 25.0 mg/dL (7-18); CARBON DIOXIDE,CO2 37.0 mmol/L (21-32); CHLORIDE,CL 90.0 mmol/L (98-107); CREATININE 1.54 mg/dL (0.55-1.02); EST CRCL DRUG DOSING (CG) 33.95 mL/min; POTASSIUM,K 4.3 mmol/L (3.5-5.1); PROTEIN TOTAL,TP 7.3 g/dL (6.4-8.2); SODIUM,NA 132.0 mmol/L (136-145)
[2025-10-15 15:44] LABS: A/G RATIO 0.7; ESTIMATED GFR 44.0 mL/min (>=60); GLUCOSE RANDOM 452.0 mg/dL (70-99)
[2025-10-15] MEDS ORDERED: 50% Dextrose in Water 50 ML Syringe IVPUSH PRN (15:44)
[2025-10-15] MEDS: GI Cocktail Oral Solution 30 ML PO ONE (16:05)
[2025-10-15] MEDS: Insulin Glarg,Human.Rec.Analog 100 Unit/ML 10 ML Vial SUBCUT ONE (16:05)
[2025-10-15 16:14] LABS: ETHANOL BLOOD MEDICAL < 3 mg/dL (0)
[2025-10-15 16:28] LABS: APPEARANCE,URINE CLEAR (CLEAR); GLUCOSE,URINE 500 (NEGATIVE); OCCULT BLOOD,URINE TRACE-INTACT (NEGATIVE)
[2025-10-15] MEDS: Octreotide 100 MCG/ML SDV SUBCUT ONE (16:31)
[2025-10-15 16:33] LABS: AMPHETAMINES,URINE NEGATIVE (NEGATIVE); BARBITURATES,URINE NEGATIVE (NEGATIVE); MDMA (ECSTASY), URINE NEGATIVE (NEGATIVE); METHAMPHETAMINES,URINE POSITIVE (NEGATIVE); OPIATES,URINE NEGATIVE (NEGATIVE); OXYCODONE,URINE NEGATIVE (NEGATIVE); PHENCYCLIDINE,URINE NEGATIVE (NEGATIVE); TCA,URINE NEGATIVE (NEGATIVE)
[2025-10-15 16:36] LABS: SQUAMOUS EPITHELIAL CELLS,UR FEW /HPF (NOT SEEN)
[2025-10-15] MEDS: Metoprolol Tartrate 5 MG/5 ML SDV IVPUSH ONE (16:54)
[2025-10-15 18:43] VITALS: BP 123/88; PULSE 64
== END 2025-10-15 18:35 | disposition home or self-care (01) ==
LOC: DL.ED 15:15
DX: K27.9 Peptic ulcer, site unspecified, unspecified as acute or chronic, without hemorrhage or perforation (principal); I10 Essential (primary) hypertension; E10.40 Type 1 diabetes mellitus with diabetic neuropathy, unspecified; Z86.16 Personal history of COVID-19; Z79.899 Other long term (current) drug therapy; Z79.4 Long term (current) use of insulin
CPT/HCPCS: 36415; 80053; 80305; 80307; 81001; 82272; 82947; 83605; 83690; 83735; 85018; 85025; 96361; 96372; 96374; 96375; 99285; A9270; J0616; J1815; J2354; J2470; J7030; 99283